=== PATIENT | male | born 1970 | race African-American/Black ===

== ENCOUNTER 2019-08-25 00:55 | Emergency (ER) | payer OTHER ==
[2019-08-25 03:42] LABS: ABS Eosinophils 0.3 10^3/ul (0-0.6); ABS Lymphocytes 1.4 10^3/ul (1.0-4.8); ABS Monocytes 0.3 10^3/ul (0-0.8); ABS Neutrophils 2.2 10^3/ul (1.5-7.7); Eosinophil % 7.2 %; Hematocrit 42 % (42-52); Hemoglobin 14.4 g/dL (14.0-18.0); Mean Corpuscular HGB Conc 34 g/dL (31-36); Mean Corpuscular Hemoglobin 30 pg (27-31); Mean Corpuscular Volume 88 fL (80-94); Mean Platelet Volume 10.8 fL (7.4-10.4); Nucleated Red Blood Cells % 0.1; Platelet Count 143 10^3/uL (150-450); Red Blood Count 4.82 10^6 /uL (4.18-5.48); Red Cell Distribution Width 15 % (10-15); White Blood Count 4.4 10^3/uL (3.5-10.8)
--- NOTE | 2019-08-25 03:52 | ED ---
Abdominal Pain/Male - HPI Summary HPI Summary: Pt is a 49 y/o M presenting to the ED with a chief complaint of abdominal pain initially onset this evening. He states he drifted off to sleep and woke up a couple hours later with a sharp abd pain in the middle of his stomach. He had a bowel movement, and when he stood up he felt pretty severe weakness. The sensation of pain in his stomach turned into a throbbing, and he began to experience some chest pressure, headache, and chills. He denies nausea, vomiting , fever, LE myalgia or LE edema. - History of Current Complaint Chief Complaint: EDAbdPain Stated Complaint: DONT FEEL RIGHT PER PT Time Seen by Provider: 08/25/19 03:01 Hx Obtained From: Patient Onset/Duration: Sudden Onset, Still Present Timing: Constant, Lasting Hours Severity Initially: Moderate Severity Currently: Moderate Pain Intensity: 6 Pain Scale Used: 0-10 Numeric Location: Umbilical Radiates: No Character: Sharp, Other: - throbbing Aggravating Factor(s): Nothing Alleviating Factor(s): Nothing Associated Signs And Symptoms: Negative: Fever, Nausea, Vomiting - Allergies/Home Medications Allergies/Adverse Reactions: Allergies Allergy/AdvReac Type Severity Reaction Status Date / Time No Known Allergies Allergy Verified 08/25/19 01:03 Home Medications: Home Medications NK [No Home Medications Reported] 08/25/19 [History Confirmed 08/25/19] PMH/Surg Hx/FS Hx/Imm Hx Previously Healthy: Yes Endocrine/Hematology History: Denies: Hx Diabetes Cardiovascular History: Denies: Hx Hypertension Infectious Disease History: No Infectious Disease History: Denies: Traveled Outside the [place] in Last 30 Days - Family History Known Family History: Negative: Diabetes - Social History Alcohol Use: None Hx Substance Use: No Substance Use Type: Reports: None Hx Tobacco Use: No Smoking Status (MU): Never Smoked Tobacco Review of Systems Positive: Chills. Negative: Fever Positive: Chest Pain - chest pressure Positive: Abdominal Pain. Negative: Vomiting, Nausea Negative: Myalgia, Edema Positive: Headache, Weakness All Other Systems Reviewed And Are Negative: Yes Physical Exam - Summary Physical Exam Summary: Constitutional: Well-developed, Well-nourished, Alert. (-) Distressed Skin: Warm, Dry HENT: Normocephalic; Atraumatic Eyes: Conjunctiva normal Neck: Musculoskeletal ROM normal neck. (-) JVD, (-) Stridor, (-) Tracheal deviation Cardio: Rhythm regular, rate normal, Heart sounds normal; Intact distal pulses; Radial pulses are 2+ and symmetric. (-) Murmur Pulmonary/Chest wall: Effort normal. (-) Respiratory distress, (-) Wheezes, (-) Rales Abd: Soft, (-) tenderness, (-) Distension, (-) Guarding, (-) Rebound Musculoskeletal: (-) Edema Lymph: (-) Cervical adenopathy Neuro: Alert, Oriented x3 Psych: Mood and affect Normal Triage Information Reviewed: Yes Vital Signs On Initial Exam: Initial Vitals Temp Pulse Resp BP Pulse Ox 98.4 F 85 16 133/87 96 08/25/19 00:55 08/25/19 00:55 08/25/19 00:55 08/25/19 00:55 08/25/19 00:55 Vital Signs Reviewed: Yes Procedures - Sedation Patient Received Moderate/Deep Sedation with Procedure: No Diagnostics - Vital Signs Vital Signs Temp Pulse Resp BP Pulse Ox 08/25/19 00:55 98.4 F 85 16 133/87 96 - Laboratory Lab Results: Lab Results 08/25/19 Range/Units 03:34 WBC 4.4 (3.5-10.8) 10^3/uL RBC 4.82 (4.18-5.48) 10^6 /uL Hgb 14.4 (14.0-18.0) g/dL Hct 42 (42-52) % MCV 88 (80-94) fL MCH 30 (27-31) pg MCHC 34 (31-36) g/dL RDW 15 (10-15) % Plt Count 143 L (150-450) 10^3/uL MPV 10.8 H (7.4-10.4) fL Neut % (Auto) 50.7 % Lymph % (Auto) 33.0 % Morgan % (Auto) 8.0 % Eos % (Auto) 7.2 % Baso % (Auto) 1.1 % Absolute Neuts (auto) 2.2 (1.5-7.7) 10^3/ul Absolute Lymphs (auto) 1.4 (1.0-4.8) 10^3/ul Absolute Monos (auto) 0.3 (0-0.8) 10^3/ul Absolute Eos (auto) 0.3 (0-0.6) 10^3/ul Absolute Basos (auto) 0.0 (0-0.2) 10^3/ul Absolute Nucleated RBC 0.0 10^3/ul Nucleated RBC % 0.1 Result Diagrams: 08/25/19 03:34 08/25/19 03:34 Lab Statement: Any lab studies that have been ordered have been reviewed, and results considered in the medical decision making process. - Radiology CXR Radiology Interpretation Completed By: ED Physician Summary of Radiographic Findings: No acute process. Pending official radiology report. - EKG 0104 Cardiac Rate: NL - 68bpm EKG Rhythm: Sinus Rhythm ST Segment: Normal Ectopy: None Summary of EKG Findings: EKG at 0104 shows NSR at 64bpm with Q-waves in lead III and aVF. No STEMI. Abdominal Pain Male Course/Dx - Course Course Of Treatment: Patient is here with midepigastric pain that radiates into his chest. Patient's overall well appearing with a benign exam. Patient had an EKG which showed no abnormalities except possible Q waves in the inferior leads. Patient had a CBC, CPK, lipase, troponin performed which were all grossly unremarkable. Patient was given lidocaine and Maalox. Patient talking about how his ainvega injection 3 years ago caused all of his symptoms. Patient was encouraged helped his primary care doctor for further management. - Diagnoses Provider Diagnoses: Epigastric abdominal pain Discharge ED - Sign-Out/Discharge Documenting (check all that apply): Patient Departure - Discharge Plan Condition: Stable Disposition: HOME Patient Education Materials: Epigastric Pain (ED) Referrals: Marito Decker MD [Primary Care Provider] - Additional Instructions: Please follow up with Dr. Decker in 1-3 days. Come back to the emergency department with worsening symptoms. - Billing Disposition and Condition Condition: STABLE Disposition: Home - Attestation Statements Document Initiated by Scribe: Yes Documenting Scribe: Suri Omer Provider For Whom Scribe is Documenting (Include Credential): Noah Lowery MD. Scribe Attestation: Suri Espino, scribed for Noah Lowery MD. on 08/25/19 at 0654. Scribe Documentation Reviewed: Yes Provider Attestation: The documentation as recorded by the scribe, Suri Omer accurately reflects the service I personally performed and the decisions made by me, Noah Lowery MD. Status of Scribe Document: Viewed
[2019-08-25 03:57] LABS: Albumin 4.2 g/dL (3.2-5.2); Albumin/Globulin Ratio 1.5 (1-3); BUN/Creatinine Ratio 9.8 (8-20); Calcium 9.3 mg/dL (8.6-10.3); EGFR African American 106.7 (>60); EGFR Non-African American 88.2 (>60); Globulin 2.8 g/dL (2-4); Total Bilirubin 0.8 mg/dL (0.2-1.0)
[2019-08-25 04:46] LABS: Potassium 4.1 mmol/L (3.5-5.0)
[2019-08-25] MEDS ORDERED: Lidocaine 2% VISCOUS* 15 ML UDC PO ONE (04:47)
[2019-08-25] MEDS ORDERED: Al Hydrox/Mg Hydrox/Simet LIQ* 30 ML UDC PO ONE (04:47)
[2019-08-25 06:44] VITALS: BP 119/74
== END 2019-08-25 06:41 | disposition home or self-care (01) ==
LOC: ED 00:55
DX: R10.13 Epigastric pain (principal)
CPT/HCPCS: 36415; 71045; 80053; 84484; 85025; 93005; 99282; A9270-GY

== ENCOUNTER 2019-09-22 02:44 | Observation (INO) | payer OTHER ==
--- NOTE | 2019-09-22 04:00 | ED ---
HPI Chest Pain - HPI Summary HPI Summary: Patient is a 49 y/o M presenting to [facility] with complaints of chest pressure/ heaviness and SOB. Patient states that these Sx onset suddenly and awoke him from sleep around 0300 09/22/19. Pressure is still present. He reports normal routine before going to bed last night. This is the second episode of such Sx. He reports that first episode occurred a few weeks ago. Patient states that during his previous visit, he was told that his EKG indicated that it was possible that the patient might have had an DC in the past. He subsequently went to PCP, who ordered a cardioechogram. Patient had echo this morning and was told that there was "nothing terrible". He denies any increased exercise intolerance, abdominal pain, N/V. Patient is not on any daily medications. FMHx of DC is denied. On triage, pain is rated 9/10. Home medications and allergies are reviewed. He describes himself as an active person. - History of Current Complaint Chief Complaint: EDChestWallPain Time Seen by Provider: 09/22/19 03:47 Hx Obtained From: Patient Onset/Duration: Started Hours Ago, Still Present Timing: Constant, Lasting Hours Current Severity: Severe Pain Intensity: 9 Pain Scale Used: 0-10 Numeric Character: Heaviness, Pressure/Squeezing Associated Signs and Symptoms: Positive: Chest Pain, Shortness of Breath, Other : - negative - increased exercise intolerance. Negative: Nausea, Abdominal Pain , Vomiting - Allergy/Home Medications Allergies/Adverse Reactions: Allergies Allergy/AdvReac Type Severity Reaction Status Date / Time No Known Allergies Allergy Verified 08/25/19 01:03 PMH/Surg Hx/FS Hx/Imm Hx Endocrine/Hematology History: Denies: Hx Diabetes Cardiovascular History: Denies: Hx Hypertension Infectious Disease History: No Infectious Disease History: Denies: Traveled Outside the [place] in Last 30 Days - Family History Known Family History: Negative: Cardiac Disease, Diabetes - Social History Alcohol Use: None Hx Substance Use: No Substance Use Type: Reports: None Hx Tobacco Use: No Smoking Status (MU): Never Smoked Tobacco Review of Systems Constitutional: Other - negative - increased exercise intolerance Positive: Chest Pain Positive: Shortness Of Breath Negative: Abdominal Pain, Vomiting, Nausea All Other Systems Reviewed And Are Negative: Yes Physical Exam - Summary Physical Exam Summary: Constitutional: Well-developed, Obese, Alert. (-) Distressed Skin: Warm, Dry HENT: Normocephalic; Atraumatic Eyes: Conjunctiva normal Neck: Musculoskeletal ROM normal neck. (-) JVD, (-) Stridor, (-) Tracheal deviation Cardio: Rhythm regular, rate normal, Heart sounds normal; Intact distal pulses; The pedal pulses are 2+ and symmetric. Radial pulses are 2+ and symmetric. Pulmonary/Chest wall: Effort normal. (-) Respiratory distress, (-) Wheezes, (-) Rales Abd: Soft, (-) tenderness, (-) Distension, (-) Guarding, (-) Rebound Musculoskeletal: (-) Edema (-) Calf tenderness Neuro: Alert, Oriented x3 Psych: Mood and affect Normal Triage Information Reviewed: Yes Vital Signs On Initial Exam: Initial Vitals Temp Pulse Resp BP Pulse Ox 0 F 92 16 141/85 98 09/22/19 02:50 09/22/19 02:50 09/22/19 02:50 09/22/19 02:50 09/22/19 02:50 Vital Signs Reviewed: Yes Procedures - Sedation Patient Received Moderate/Deep Sedation with Procedure: No Diagnostics - Vital Signs Vital Signs Temp Pulse Resp BP Pulse Ox 09/22/19 03:30 81 18 134/91 98 09/22/19 03:00 87 20 141/85 98 09/22/19 02:59 87 16 99 09/22/19 02:50 0 F 92 16 141/85 98 - Laboratory Result Diagrams: 09/22/19 04:10 09/22/19 04:55 Lab Statement: Any lab studies that have been ordered have been reviewed, and results considered in the medical decision making process. - Radiology CXR Radiology Interpretation Completed By: ED Physician Summary of Radiographic Findings: No acute disease, pending official report. - EKG 0247 Cardiac Rate: NL - rate of 85 BPM EKG Rhythm: Sinus Rhythm EKG Comparison: No Significant Change - inferior Q waves that are old compared to EKG done 08/25/19 Summary of EKG Findings: EKG showed NSR with rate of 85 BPM, no STEMI, inferior Q waves that are old compared to EKG done 08/25/19. This EKG was reviewed and interpreted by Dr. Stewart. Chest Pain Course/Dx - Course Course Of Treatment: Patient is a 49 y/o M presenting to [facility] with complaints of chest pressure/heaviness and SOB. Patient states that these Sx onset suddenly and awoke him from sleep around 0300 09/22/19. Pressure is still present. He reports normal routine before going to bed last night. This is the second episode of such Sx. He reports that first episode occurred a few weeks ago. Patient states that during his previous visit, he was told that his EKG indicated that it was possible that the patient might have had an DC in the past. He subsequently went to PCP, who ordered a cardioechogram. Patient had echo this morning and was told that there was "nothing terrible". First trop was negative. EKG showed NSR with rate of 85 BPM, no STEMI, inferior Q waves that are old compared to EKG done 08/25/19. CXR showed no acute disease. Patient 's case was discussed with Dr. Guzman, Dr. Guzman accepts for admission. - Diagnoses Provider Diagnoses: Chest pain - Provider Notifications Discussed Care Of Patient With: Nina Guzman Time Discussed With Above Provider: 04:53 Instructed by Provider To: Other - Patient's case was discussed with Dr. Guzman , Dr. Guzman accepts for admission. Discharge ED - Sign-Out/Discharge Documenting (check all that apply): Patient Departure - admit - Discharge Plan Condition: Stable Disposition: ADMITTED TO [facility] Referrals: Marito Decker MD [Primary Care Provider] - - Billing Disposition and Condition Condition: STABLE Disposition: Admitted to [facility] - Attestation Statements Document Initiated by Maxine: Yes Documenting Jaronibe: ARSENIO MARTI Provider For Whom Maxine is Documenting (Include Credential): DUANE STEWART MD Scribe Attestation: IARSENIO, scribed for DUANE STEWART MD on 09/22/19 at 0730. Scribe Documentation Reviewed: Yes Provider Attestation: The documentation as recorded by the ARSENIO crawley accurately reflects the service I personally performed and the decisions made by me, DUANE STEWART MD Status of Scribe Document: Viewed
[2019-09-22 04:18] LABS: Hematocrit 44 % (42-52); Hemoglobin 14.8 g/dL (14.0-18.0); Mean Corpuscular HGB Conc 33 g/dL (31-36); Mean Corpuscular Hemoglobin 29 pg (27-31); Mean Corpuscular Volume 88 fL (80-94); Mean Platelet Volume 10.4 fL (7.4-10.4); Platelet Count 141 10^3/uL (150-450); Red Blood Count 5.02 10^6 /uL (4.18-5.48); Red Cell Distribution Width 15 % (10-15); White Blood Count 4.3 10^3/uL (3.5-10.8)
[2019-09-22 04:37] LABS: ALT 44 U/L (7-52); Albumin 4.1 g/dL (3.2-5.2); Albumin/Globulin Ratio 1.3 (1-3); Alkaline Phosphatase 78 U/L (34-104); BUN/Creatinine Ratio 13.4 (8-20); Blood Urea Nitrogen 13 mg/dL (6-24); CO2 Carbon Dioxide 24 mmol/L (22-32); Calcium 9.1 mg/dL (8.6-10.3); Chloride 106 mmol/L (101-111); EGFR African American 100.4 (>60); Globulin 3.1 g/dL (2-4); Glucose 105 mg/dL (70-100); Sodium 136 mmol/L (135-145); Total Protein 7.2 g/dL (6.4-8.9)
[2019-09-22 04:41] LABS: Anion Gap 6 mmol/L (2-11)
[2019-09-22] MEDS ORDERED: Aspirin 81 mg CHEW TAB* 81 MG TAB.CHEW PO ONE (05:04)
[2019-09-22 05:24] LABS: Magnesium 1.9 mg/dL (1.9-2.7); Total Bilirubin 0.6 mg/dL (0.2-1.0)
[2019-09-22 05:27] LABS: ABS Eosinophils 0.3 10^3/ul (0-0.6); ABS Lymphocytes 1.3 10^3/ul (1.0-4.8); ABS Monocytes 0.4 10^3/ul (0-0.8); ABS Neutrophils 2.3 10^3/ul (1.5-7.7); Eosinophil % 6.8 %; Lymphocyte % 30.2 %; Nucleated Red Blood Cells % 0.3
[2019-09-22 05:38] LABS: Potassium Redraw 3.8 mmol/L (3.5-5.0)
[2019-09-22] MEDS ORDERED: Acetaminophen TAB* 325 MG PO PRN (08:20)
[2019-09-22] MEDS ORDERED: Iohexol 350* (CONTRAST) 500 ML MDV IV ONE (08:29)
[2019-09-22] MEDS: Aspirin EC TAB* 81 MG TAB.EC PO SCH (10:06)
[2019-09-22] MEDS ORDERED: Perflutren Lipid Microsphere* 3 ML VIAL ONE (10:41)
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
--- NOTE | 2019-09-22 14:21 | ECHO ---
*[facility]* [place] [address] Fax #: [phone] Transthoracic Echocardiogram Patient: Omari Kern : 1970 Study Date: 09/22/2019 Age: 49 Gender: M HR: 74 bpm Height: 75 in /190.5 cm BSA: 2.41 m^2 Weight: 249.5 lb /113.4 kg BMI: 31.2 kg/m^2 *Director Federal: Jeaneth Walsh RD *Referring Physician: * Maryanne PangReading Physician: * Yann Cowan MD Indications: Chest Pain, unspecified. SOB. Conclusions Summary: - Left ventricle: The cavity size is normal. Wall thickness is normal. Systolic function is normal. The estimated ejection fraction is 55-60%. Wall motion is normal; there are no regional wall motion abnormalities. - Right ventricle: The cavity size is normal. Systolic function is normal. - Left atrium: The atrium is normal in size. - Pulmonary arteries: Systolic pressure is within the normal range. - No significant valvular abnormalities noted. Recommendations: None prior for comparison at time of interpretation. Study data: Transthoracic echocardiogram. Procedure: Transthoracic echocardiography was performed. Image quality was adequate. The study was technically limited due to body habitus. Intravenous Definity , 3 mlswas administered. Image enhancement administered by Complete 2D, spectral Doppler, and color flow Doppler. Patient status: Observation. Patient room number: 443-1. Rhythm: Normal sinus rhythm. Findings Left ventricle: The cavity size is normal. Wall thickness is normal. Systolic function is normal. The estimated ejection fraction is 55-60%. Wall motion is normal; there are no regional wall motion abnormalities. Doppler parameters are consistent with abnormal left ventricular relaxation (grade 1 diastolic dysfunction). Right ventricle: Not well visualized. The cavity size is normal. Systolic function is normal. Ventricular septum: Well visualized. The ventricular septum is normal. Left atrium: Well visualized. The atrium is normal in size. Right atrium: Not well visualized. The atrium is normal in size. Atrial septum: Well visualized. Mitral valve: Well visualized. The valve is structurally normal. No echocardiographic evidence for prolapse. There is trace regurgitation. Aortic valve: Well visualized. The valve is structurally normal. Cusp separation is normal. Transvalvular velocity is within the normal range. Tricuspid valve: Well visualized. The leaflets are normal thickness. There is no evidence of stenosis. There is trace regurgitation. Pulmonic valve: Well visualized. There is no evidence of stenosis. There is no significant regurgitation. Aorta: The aorta is well visualized and normal size. The aortic root appears normal. The aortic arch appears normal. Pericardium: There is no pericardial effusion. Pulmonary arteries: Well visualized. Systolic pressure is within the normal range. Systemic veins: Not well visualized. Pulmonary veins: Visualization of the pulmonary venous anatomy is incomplete, but a significant abnormality is unlikely. Measurements Left ventricle Value Ref Right atrium continued Value Ref WILLIE, LAX 4.2 cm 4.2 - ML dim, ES, A4C 3.3 cm 2.6 - 5.8 4.4 ESD, LAX 2.9 cm 2.5 - SI dim, ES, A4C 4.5 cm 3.4 - 4.0 5.3 FS, LAX 31 % 25 - 43 PW, ED, LAX (H) 1.1 cm 0.6 - Aortic valve Value Ref 1.0 Tricia diam, ED 2.1 cm ------- FS 31 % 25 - 43 Peak v, S 1.12 m/sec ------- PW, ED (H) 1.1 cm 0.6 - VTI, S 24.4 cm ------- 1.0 Mean grad, S 3.0 mm Hg ------- PW/ID, ED 0.25 -------- Peak grad, S 5.0 mm Hg ------- E', lat tricia, TDI 10.3 cm/sec >=10.0 LVOT/AV, VTI ratio 1.01 ------- E/e', lat tricia, TDI 7 -------- E', med tricia, TDI 8.6 cm/sec >=7.0 Mitral valve Value Ref E/e', med tricia, TDI 8 -------- Peak E 0.7 m/sec -- ----- E', avg, TDI 9.5 cm/sec -------- Peak A 0.72 m/sec -- ----- E/e', avg, TDI 7 <=14 Decel time 148 ms ------- Peak E/A ratio 1 ------- LVOT Value Ref Peak vidal, S 1.23 m/sec -------- Pulmonic valve Value Ref VTI, S 24.7 cm -------- Peak v, S 0.78 m/sec ------- Peak grad, S 6 mm Hg -------- Peak grad, S 2.0 mm Hg ------- Mean grad, S 2 mm Hg -------- Aortic root Value Ref Ventricular septum Value Ref Root diam 3.3 cm <4.4 IVS, ED 0.9 cm 0.6 - Root max diam, ED 1.9 cm <4.4 1.0 Ascending aorta Value Ref Right ventricle Value Ref AAo AP diam, S 3.2 cm ------- WILLIE, LAX 3.2 cm -------- AAo AP diam/bsa, S 1.3 cm/m^2 ------- WILLIE minor ax, A4C 3.1 cm 1.9 - mid 3.5 Aortic arch Value Ref Arch diam 2.8 cm ------- Left atrium Value Ref ML dim, A4C 4.0 cm -------- Decending aorta Value Ref SI dim, A4C 4.8 cm -------- Singh peak vidal 0.7 m/sec ------- Vol/bsa, ES, A/L 16 ml/m^2 16 - 34 Right atrium Value Ref SI dim, ES 4.5 cm 3.4 - 5.3 Legend: (L) and (H) cher values outside specified reference range. Prepared and electronically signed by Yann Cowan MD 09/22/2019 14:21
[2019-09-23] MEDS: Aspirin EC TAB* 81 MG TAB.EC PO SCH (08:32)
[2019-09-23 10:03] LABS: HDL Cholesterol 43.2 mg/dL
[2019-09-23] MEDS ORDERED: Perflutren Lipid Microsphere* 3 ML VIAL ONE (14:50)
--- NOTE | 2019-09-23 18:25 | PN ---
Subjective Date of Service: 09/23/19 Interval History: At time of evaluation, patient tells me he still has chest pressure which has been mostly persistent throughout the day today. He states it is improved from yesterday. He states it is not a pain but rather a pressure only. Denies fever/ chills, difficulty breathing, abd pain. He is evidently unsatisfied with the information I explain to him regarding his stress test and tells me, "You are only here because they don't want to talk to me." When asked to explain further he states, "my doctor." When attempting to explain the function of a physician butcher assistant patient interrupts and does not want more information. Objective Active Medications: Acetaminophen (Tylenol Tab*) 650 mg PO Q6H PRN PRN Reason: MILD PAIN or TEMP > 100.4 Aspirin (Aspirin Ec Tab*) 81 mg PO DAILY SHAY Last Admin: 09/23/19 08:32 Dose: Not Given Vital Signs - 8 hr 09/23/19 12:04 Temperature 97.8 F Pulse Rate 74 Respiratory 16 Rate Blood Pressure 126/85 (mmHg) O2 Sat by Pulse 100 Oximetry Oxygen Devices in Use Now: None Appearance: Black male who appears younger than stated age, laying upright in bed, in NAD Eyes: No Scleral Icterus Ears/Nose/Mouth/Throat: Mucous Membranes Moist Neck: - - neck is supple Respiratory: Symmetrical Chest Expansion and Respiratory Effort, - - declines exam Cardiovascular: - - declines exam Abdominal: - - declines exam Extremities: - - declines exam, legs are under blankets Skin: - - areas of hypopigmented skin consistent with vitiligo Neurological: Alert and Oriented x 3 Result Diagrams: 09/22/19 04:10 09/22/19 04:55 Assess/Plan/Problems-Billing Assessment: 49 yo black male with PMHx prior episodes of psychosis and vitiligo presents with chest pressure. - Patient Problems (1) Chest pressure Current Visit: Yes Status: Acute Code(s): R07.89 - OTHER CHEST PAIN SNOMED Code(s): 477243953 Comment: -presents with chest pressure, which is improved today though still present -CTA negative for PE -troponins negative x3 -exercise stress test today determined to be low risk -patient declines physical exam and I am unable to determine if this is reproducible or not though there is nursing documentation stating that the chest pressure is not reproducible on exam -I will discontinue aspirin as the cause is not cardiac -his LDL is elevated and perhaps would benefit from a statin which would warrant discussion with his PCP (2) Delusion Current Visit: Yes Status: Acute Code(s): F22 - DELUSIONAL DISORDERS SNOMED Code(s): 2971266 Comment: -patient has a persistent delusion about being poisoned in 2013 and believes this is still impacting his health -some documentation from previous psychiatric hospitalizations in [place] obtained from Dr. Decker's office and are in chart -patient previously prescribed antipsychotics and currently is not taking any medications -patient reportedly has a guardian but the situation is not clear. This may be indicative that patient lacks capacity to make decisions regarding his medication, though requires further investigation. Social work involved -psychiatry consulted, greatly appreciate input (3) DVT prophylaxis Current Visit: Yes Status: Acute Code(s): Z29.9 - ENCOUNTER FOR PROPHYLACTIC MEASURES, UNSPECIFIED SNOMED Code(s): 307377847 Comment: -SCDs (4) Full code status Current Visit: Yes Status: Acute Code(s): Z78.9 - OTHER SPECIFIED HEALTH STATUS SNOMED Code(s): 934408620 Status and Disposition: At this time, there are concerns for homelessness and thus there is no safe plan for discharge. SW discussed emergency housing with DSS. Also pending psychiatry evaluation
[2019-09-23] MEDS ORDERED: Famotidine TAB* 20 MG PO PRN (18:31)
--- NOTE | 2019-09-23 20:15 | CONS ---
CONSULTATION REPORT: DATE OF CONSULT: 09/23/19 REFERRING CLINICIAN: ALESSANDRA Guzman. CONSULTING PHYSICIAN: Dr. Karl Bhatt. REASON FOR CONSULT: Paranoid behavior. SUBJECTIVE HISTORY: The patient is a 49-year-old, single [place] Islander immigrant with a history of psychosis who self-referred to the emergency room 1 day ago complaining of chest pain and is currently admitted to the telemetry service here on the fourth floor. While receiving diagnostic services and care , the patient has appeared to be quite paranoid making statements to the effect that he believes he is being poisoned and persecuted. The primary team was concerned enough about these tendencies to request consultation. When I meet with the patient, he openly tells me about a prolonged state psychiatric hospitalization that occurred in [place] from October 2014 until roughly August 2015. His account is that he was merely minding his own business at a local [employer] where he was eating and he walked downstairs to use the bathroom and was apprehended by law enforcement and accused of trespassing. He was in snf for 2 to 3 months and then transferred to the [facility] where they tried to medicate him. Because he refused antipsychotics, he was taken to court and then put on long-acting injectable Invega Sustenna. He claims that this medication caused a skin condition called vitiligo as well as muscle aches , shuffling gait, and chronic constipation. He was discharged to a local social services coordinator for case management, but briefly moved to [place], [place], where he tried to get a job and then moved to the [facility] where his foster brother, Guille Salgado resides. He is currently living with Mr. Salgado in [place] and without permission apparently took a family car in order to drive himself to the hospital. He is very much paranoid towards Mr. Salgado and did not want this person notified of his admission. Currently, he is denying auditory or visual hallucinations. He denies thought broadcasting, thought insertion, or ideas of reference. He denies any depressed mood or anxiety, although I do notice that he gets tearful when he is accusing his foster family of being against him. 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 For collateral information, I did speak with his foster brother who at one point had legal guardianship over him. This person's name is Guille Salgado. His phone number is [phone]. Mr. Salgado indicates that when the patient is psychotic, he can become agitated and this was the reason for his hospitalization in [place]. Since getting out of the hospital, his paranoia was largely under control, but the longer he has been off of Invega, the more symptomatic he has become. Mr. Salgado does confirm that the patient did quite poorly on Invega, saying that the medicine "nearly killed him." He is aware that Omari has paranoid ideas towards him, but he denies that Omari has been violent towards himself or others. The patient in fact does steadfastly deny suicidal or homicidal ideations. PAST PSYCHIATRIC HISTORY: The patient was hospitalized at the [facility] in [place], [place], in October 2014 until his release in August 2015. There, he was treated with Invega Sustenna 234 mg monthly. His last injection was in August 2015 just before his release. He was briefly referred to the [facility], but never made it there for any appointments having moved out of that area. Since living in [place], he has seen a psychologist named Steve Ybarra LCSW. I spoke with Mr. Ybarra on the phone who was not comfortable giving the collateral history without a signed release. The patient has never been on other psychiatric treatment. He has no formal history of violence towards others and he denies suicidal or homicidal ideations currently. SUBSTANCE ABUSE HISTORY: Negative for alcohol, illicit drug abuse, or tobacco usage. PAST MEDICAL HISTORY: Significant for vitiligo and acute chest pain. FAMILY HISTORY: Noncontributory. SOCIAL HISTORY: The patient was born in [place] where his family were refugees, forced to [place] the border [place] [facility]. He was able to emigrate to the [place] at the age of 18 and he was adopted by a woman named Kristine Damian in [place], [place]. Thereafter, he went to undergraduate college at [employer] in [place]. He has a bachelor's degree in chemistry and economics. Thereafter, he went to graduate school in epidemiology at [employer] and thereafter got a master's in public health at [employer]. 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 He last worked at the [employer] for a joint project between the [employer] and the [employer]. Since his health issues, he has been chronically unemployed and is frustrated at his inability find work at this point questioning whether he is a victim of a conspiracy. The patient is single , never . He has no children. He was raised Episcopal. He does have 1 arrest in July 2014 with 3 months confinement in the [facility] in [place], where his official charge was trespassing. MENTAL STATUS EXAMINATION: The patient is a middle-aged East male with dark skin with the exception of some blotchy white patches on his face, scalp, and arms. He is clean, well groomed, dressed in a patient gown. He is calm, cooperative, conversational. Mood appears to be euthymic with a full affect. Thought process is linear and goal directed. Thought content is highly persecutorial, delusional. He denies suicidal or homicidal ideations. He denies auditory or visual hallucinations. Insight and judgment are limited given his refusal to take further antipsychotic medications. Cognitively, he is awake and alert with what would appear to be high average intellect by virtue of his extensive academic history of achievement. DIAGNOSES: [place] I: Delusional disorder. [place] II: Deferred. IMPRESSION: The patient is a 49-year-old [place]inese [place] Islander immigrant with a history of prolonged state psychiatric hospitalization for treatment of delusions, who arrives voluntarily seeking treatment for chest pain. Since admission to the fourth floor, the staff has noted that he is paranoid and voicing persecutory ideas of people poisoning him and trying to conspire against him. This is corroborated by his foster brother, Guille Salgado, who at point had legal guardianship and with whom the patient has been living in [place], [place]. RECOMMENDATIONS TO PRIMARY TEAM: Psychiatry would like to see the patient again tomorrow to revisit the issue of possible antipsychotic therapy. If he was not tolerant of Invega, there is a chance that Abilify could be far better tolerated. It would be good if he could be hooked up with outpatient services locally. I do not see the patient as a risk to himself or others and he certainly does not meet criteria for involuntary psychiatric treatment. He is psychiatrically cleared for discharge at such time as the medical team feels that this is warranted. Psychiatry will see him again on 09/24/19 and make any further recommendations at that time. Thank you for the consult request. [id number]/CPS #: [id number] TONY
--- NOTE | 2019-09-24 12:04 | CONSULT ---
Identification - Patient Identification Reason for Psychiatric Consultation: Incapacitating Symptoms -: Patient is a 49 year old, M admitted on 09/22/19. - MHU Identification Employment Status: Unemployed Hx Psychiatric Hospitalization: Yes History - Objective HPI: Omari is seen for psychiatric follow up on the 4th floor. He remains cooperative and articulate, inviting me to sit down and talk. He has a laptop which he uses to pull up a copy of the legal guardianship court paperwork from [place] in 2015. "I am not upset and I have no malice towards anyone. I just want to have the right to pursue my own career and life plan from this point forward." He notes that he spoke with Lupe Salgado, the of his foster brother Guille, and indicates that she has come to the hospital to retrieve the family car he drove here, without their knowledge or consent, on the date of admission. He is now asking for assistance with housing, given the fact that he has lost trust for his foster family. He denies chest pain at this time and admits to no thoughts of harming himself or others. I did reveal my diagnosis of Delusional Disorder and gave him my rationale for coming to this conclusion. I advised him to start a trial of low dose aripiprazole and to follow up with MH treatment at [facility] clinic. He is polite but does not concur with my recommendations, although he agrees to see me for follow up if still here tomorrow. Exam Appearance: Well Developed/Nourished Hygiene: Normal Grooming: Well Kept Psychomotor Activities: Normal Exhibits Abnormal Movement: No Attitude and Relatedness: Cooperative Eye Contact: Good - Speech Quality: Unpressured Latencies: Normal Quantity: Appropriate Patient's Decription of Mood: "Fine" Observed Affect: Fair Affect Consistent with: Euthymia Patient's Thought Process: Coherent Thought Content: Yes Paranoid Ideation, No Passive Wish, No Suicidal Planning, No Homicidal Ideation Experiencing Hallucinations: No, Sensorium is Clear Type of Hallucinations: Visual: No, Auditory: No, Command: No Level of Consciousness: Alert Orientation: Yes Intact, Yes Orientated to Time, Yes Orientated to Place, Yes Orientated to Person Impulse Control: Intact Insight and Judgement: Poor Impression - Impression Clinical Impression: 49 y.o. Polish-Thai immigrant male with a history of psychotic disorder and long-term State psychiatric hospitalization in [place], currently admitted to the Hospitalist service due to chest pain, who presents with paranoid delusions. Inpatient DSM-V Dx: F22 Merits Inpatient Hospitalization: No BSU: Problem List - Patient Problems (1) Delusional disorder Current Visit: Yes Status: Acute Priority: Medium Code(s): F22 - DELUSIONAL DISORDERS SNOMED Code(s): 30980075 Plan - Treatment Plan Treatment Plan: Psychiatry recommends the initiation of aripiprazole 2.5mg PO qday, which the patient has the right to refuse. He has capacity to make informed decisions and is not currently a danger to himself nor others. He is psychiatrically cleared for discharge and would benefit from f/u at [facility]. Psychiatry will see him again tomorrow if still hospitalized. Continued Medication Management: Start Medication Medications: Current Medications Acetaminophen (Tylenol Tab*) 650 mg PO Q6H PRN PRN Reason: MILD PAIN or TEMP > 100.4 Famotidine (Pepcid Tab*) 20 mg PO BID PRN PRN Reason: HEARTBURN - Discharge Plan Discharge Plan: Outpatient Follow Up Outpatient Program: [facility]
[2019-09-24] MEDS: ARIPiprazole TAB* 5 MG PO SCH (14:25)
--- NOTE | 2019-09-24 15:32 | PN ---
Subjective Date of Service: 09/24/19 Interval History: Patient expresses he would not want to be discharged because he spoke with the vp digital marketing social media and crm yesterday who "promised she would bring me information regarding housing." He does not want to go back to his current living situation. He denies abd pain, chest pain, difficulty breathing. He tells me he has not heard back about "all the blood tests that were done" and this editorial writer mentioned that we discussed the negative troponins yesterday. He tells me, "that is your perception." Objective Active Medications: Acetaminophen (Tylenol Tab*) 650 mg PO Q6H PRN PRN Reason: MILD PAIN or TEMP > 100.4 Aripiprazole (Abilify Tab*) 2.5 mg PO DAILY SHAY Last Admin: 09/24/19 14:25 Dose: Not Given Famotidine (Pepcid Tab*) 20 mg PO BID PRN PRN Reason: HEARTBURN Vital Signs - 8 hr 09/24/19 09/24/19 09:54 11:15 Temperature 98 F 98.2 F Pulse Rate 88 85 Respiratory 18 20 Rate Blood Pressure 118/70 111/72 (mmHg) O2 Sat by Pulse 99 98 Oximetry Oxygen Devices in Use Now: None Appearance: Black male who appears younger than stated age, laying upright in bed, in NAD Eyes: No Scleral Icterus, - - PERRL Ears/Nose/Mouth/Throat: Mucous Membranes Moist Respiratory: Symmetrical Chest Expansion and Respiratory Effort, Clear to Auscultation Cardiovascular: NL Sounds; No Murmurs; No JVD, RRR Abdominal: - - abd soft, nontender, nondistended Extremities: No Edema, No Clubbing, Cyanosis, - - no calf tenderness Skin: - - patches of hypopigmented skin consistent with vitiligo Neurological: Alert and Oriented x 3, NL Muscle Strength and Tone Result Diagrams: 09/22/19 04:10 09/22/19 04:55 Assess/Plan/Problems-Billing Assessment: 49 yo black male with PMHx prior episodes of psychosis and vitiligo presents with chest pressure. - Patient Problems (1) Chest pressure Current Visit: Yes Status: Acute Code(s): R07.89 - OTHER CHEST PAIN SNOMED Code(s): 493525652 Comment: -presents with chest pressure, which is improved today though still present -CTA negative for PE -troponins negative x3 -exercise stress test determined to be low risk -aspirin discontinued as the cause is not cardiac -his LDL is elevated and perhaps would benefit from a statin which would warrant discussion with his PCP -ordered prn famotidine as GERD is on differential (2) Delusion Current Visit: Yes Status: Acute Code(s): F22 - DELUSIONAL DISORDERS SNOMED Code(s): 0197861 Comment: -patient has a persistent delusion about being poisoned in 2013 and believes this is still impacting his health -some documentation from previous psychiatric hospitalizations in [place] obtained from Dr. Decker's office and are in chart -patient previously prescribed antipsychotics and currently is not taking any medications -appreciate psychiatry consult. Dr. Bhatt recommended the patient try abilify and he declines at this time -f/u [facility] at discharge (3) DVT prophylaxis Current Visit: Yes Status: Acute Code(s): Z29.9 - ENCOUNTER FOR PROPHYLACTIC MEASURES, UNSPECIFIED SNOMED Code(s): 306189897 Comment: -SCDs (4) Full code status Current Visit: Yes Status: Acute Code(s): Z78.9 - OTHER SPECIFIED HEALTH STATUS SNOMED Code(s): 267942483 Status and Disposition: SW discussed emergency housing from [facility] with the patient and this is unable to occur over the weekend
[2019-09-25] MEDS: ARIPiprazole TAB* 5 MG PO SCH (08:50)
--- NOTE | 2019-09-25 16:41 | PN ---
Subjective Date of Service: 09/25/19 Interval History: Mr. Kern states that he continues to have mid-sternal chest pressure that he rates at 2-4/10. He denies chest pain. He notes that this has intermittently been present for approximately 3 months. He denies palpitation, pain with deep inhalation, tenderness to palpation. He states that he is cold today and has had a dry cough x2 days. He has no other complaints today. Objective Active Medications: Acetaminophen (Tylenol Tab*) 650 mg PO Q6H PRN PRN Reason: MILD PAIN or TEMP > 100.4 Aripiprazole (Abilify Tab*) 2.5 mg PO DAILY SHAY Last Admin: 09/25/19 08:50 Dose: Not Given Famotidine (Pepcid Tab*) 20 mg PO BID PRN PRN Reason: HEARTBURN Vital Signs: Temp Pulse Resp BP Pulse Ox 97.2 F 78 18 125/73 98 09/25/19 15:38 09/25/19 15:38 09/25/19 15:38 09/25/19 15:38 09/25/19 15:38 Oxygen Devices in Use Now: None Appearance: Mr. Kern is a middle-aged black male who is sitting up in bed. He appears well, in no acute distress. Eyes: No Scleral Icterus, PERRLA Ears/Nose/Mouth/Throat: NL Teeth, Lips, Gums, Clear Oropharnyx, Mucous Membranes Moist Neck: NL Appearance and Movements; NL JVP, Trachea Midline Respiratory: Symmetrical Chest Expansion and Respiratory Effort, Clear to Auscultation Cardiovascular: NL Sounds; No Murmurs; No JVD, RRR, No Edema, - - Anterior chest wall nontender to palpation. Abdominal: NL Sounds; No Tenderness; No Distention, No Hepatosplenomegaly Extremities: No Edema, No Clubbing, Cyanosis Neurological: Alert and Oriented x 3 Result Diagrams: 09/22/19 04:10 09/22/19 04:55 Assess/Plan/Problems-Billing Assessment: 49 yo black male with PMHx prior episodes of psychosis and vitiligo presents with chest pressure. - Patient Problems (1) Chest pressure Comment: -presents with chest pressure, which is improved today though still present -CTA negative for PE -troponins negative x3 -exercise stress test determined to be low risk -aspirin discontinued as the cause is not cardiac -elevated LDL discussed with patient, and he would prefer diet, exercise and declines statins at this time; recommend further discussion with PCP -ordered prn famotidine as GERD is on differential (2) Delusion Comment: -patient has a persistent delusion about being poisoned in 2013 and believes this is still impacting his health -some documentation from previous psychiatric hospitalizations in [place] obtained from Dr. Decker's office and are in chart -patient previously prescribed antipsychotics and currently is not taking any medications -appreciate psychiatry consult. Dr. hBatt recommended the patient try abilify and he declines at this time -f/u [facility] at discharge (3) DVT prophylaxis Comment: -SCDs (4) Full code status Status and Disposition: SW discussed emergency housing from [facility] with the patient and this is unable to occur over the weekend. Plan for d/c to DSS tomorrow discussed with patient, and he is agreeable.
[2019-09-26] MEDS: ARIPiprazole TAB* 5 MG PO SCH (08:59)
[2019-09-26 11:55] VITALS: BP 137/82
--- NOTE | 2019-09-27 02:34 | DS ---
DISCHARGE SUMMARY: DATE OF ADMISSION: 09/22/19 DATE OF DISCHARGE: 09/26/19 PRIMARY CARE PROVIDER: Dr. Marito Decker. ATTENDING PHYSICIAN: Dr. Purnima Ribeiro * (dictated by ALESSANDRA Conway). PRIMARY DIAGNOSIS: Chest pressure, acute coronary syndrome ruled out. SECONDARY DIAGNOSES: 1. Vitiligo. 2. History of psychotic break. STUDIES WHILE IN THE HOSPITAL: 1. Chest x-ray. Impression: No evidence for active cardiopulmonary disease. 2. TTE. Summary: LV cavity size normal, wall thickness normal, systolic function normal. Estimated EF 55% to 60%. Wall motion normal without regional wall motion abnormalities. RV cavity size normal. Systolic function normal. LA normal in size. Pulmonary artery systolic pressure within the range. No significant valvular abnormalities noted. 3. CTA of the chest. Impression: No pulmonary embolism, predominantly clear lungs with subsegmental atelectasis. 4. Low-risk stress test. CONSULTATIONS WHILE IN THE HOSPITAL: Psychiatry. Psychiatry would like to see the patient again tomorrow to revisit the issue of possible antipsychotic therapy. If he was not tolerant to Invega, there is a chance that Ability could be far better tolerated. It would be good if he could be hooked up with outpatient services locally. I do not see the patient as a risk to himself or others and he certainly does not meet criteria for involuntary psychiatric treatment. He is psychiatrically cleared for discharge at such time as the medical team feels that this is warranted. Psych will see him again on Thursday and make further recommendations at that time. DISCHARGE MEDICATIONS: Home Medications: None. Discharge Medications: 1. Acetaminophen 650 mg p.o. q.6 hours p.r.n. for pain. 2. Aripiprazole 2.5 mg p.o. daily. 3. Famotidine 20 mg p.o. b.i.d. p.r.n. for reflux. HISTORY OF PRESENT ILLNESS/HOSPITAL COURSE: Mr. Kern is a middle-aged black male with a past medical history of psychiatric break who presented to the emergency room on 09/22/19 with complaints of sudden-onset chest pressure and shortness of breath. For full and complete details, please see the history and physical dictated by Maryanne Coleman MD, but in short, the patient presents with these symptoms. He states he awoke at 1:00 in the morning with shortness of breath and chest pressure. He was admitted to the hospital. EKG was obtained and showed no ST changes, although there were Q waves noted. Troponins were ordered and were negative x3. An echocardiogram was ordered and was within normal limits without wall motion abnormalities. Exercise stress test was performed and the patient was determined to be low risk. The patient reports that he is homeless and therefore remained in the hospital through the weekend until he could be safely discharged to [facility] for emergency housing. Psychiatry was consulted due to the patient expressing paranoid behaviors. Psychiatry recommended Abilify, although the patient refused to take this medication. It was recommended that he follow up outpatient with [facility]. At the time of discharge, the patient is medically stable for discharge. He initially does not feel comfortable with plans to discharge to [facility] for emergency housing, although he is eventually agreeable. He continues to have chest pressure that he rates between 2 and 3. REVIEW OF SYSTEMS: A 14-point review of systems has been performed and all the pertinent positives and negatives are in the HPI. All other systems are negative. PHYSICAL EXAMINATION: General: Mr. Kern is a middle-aged black male who is sitting up in bed. He is resting comfortably and appears to be in no acute distress. HEENT: PERRL. EOMI. Nonicteric sclerae. Hearing grossly intact. Oral mucous membranes are moist. There are no lesions. The pharynx is clear. Cardiovascular: Regular rate and rhythm without murmurs, rubs, clicks, or gallops. There is no JVD. There is no peripheral edema. Radial and pedal pulses are palpable. Pulmonary: Symmetrical chest expansion without the use of accessory muscles. Lungs: Clear to auscultation bilaterally without rhonchi , wheezes, or rubs. No digital clubbing or cyanosis. Abdomen: Flat. Bowel sounds in all quadrants. Soft, nontender to palpation. Musculoskeletal: The patient moves all extremities. Neuro: The patient is awake. He is alert and oriented x3 with cranial nerves grossly intact. Strength is 5/5 bilaterally in the upper and lower extremities. Vital Signs: Temperature 97.9 oral, heart rate 75, respiratory rate 16, oxygen saturation 99% on room air, blood pressure 137/82. DISCHARGE PLAN: Mr. Kern is stable for discharge to home. CONDITION: Good. DIET: Low-fat/heart-healthy diet for elevated LDL cholesterol. ACTIVITY: Return to regular activity as tolerated. EDUCATION: 1. Follow up with primary care provider in 4 to 7 days to discuss recent hospitalization, new medications, LDL of 141, and the possibility of starting statin medication. 2. Return to the ER or nearest hospital if you experience any worsening of symptoms, chest pain or discomfort, shortness of breath, dizziness, lightheadedness, loss of consciousness, high fevers, chills, night sweats, or any other worrisome signs or symptoms. This is a summarized report of a complex medical history and hospital stay. For further details, please see the entire medical record. TIME SPENT: Approximately 45 minutes were spent on this discharge, greater than half that time was spent [id number] with the patient discussing discharge plans and instructions. ALESSANDRA YU [id number]/[facility] #: [id number] TONY
== END 2019-09-26 17:00 | disposition home or self-care (01) ==
LOC: ED 02:44 → MEDTELE 08:02 → EEVIPCON 08:02 → MEDTELE 09-23 08:59
PROVIDERS: ADMIT Internal Medicine; ATTEND Internal Medicine
DX: R07.9 Chest pain, unspecified (principal); R06.02 Shortness of breath; F22 Delusional disorders; R94.31 Abnormal electrocardiogram [ECG] [EKG]
CPT/HCPCS: 36415; 71046; 71275; 80048; 80061; 80076; 82247; 83690; 83735; 84484; 85025; 93005; 93306; 93351; 93352; 99283; A9270-GY; C8929; C8930; G0378; Q9967

== ENCOUNTER 2019-12-14 12:52 | Inpatient (IN) | payer OTHER ==
--- NOTE | 2019-12-14 13:08 | ED ---
Psychiatric Complaint - HPI Summary HPI Summary: The patient is a 49 y/o male brought in by EMS and police as 9[address] to [facility] with concern for disorientation today. Per EMS and police, the patient has been staying in the lobby of a hotel and will not leave because he was sent here by the [facility] [employer] and is waiting for them to confirm the reservation. Police have been called multiple times without him leaving the complex. Patient denies concern for being in the hotel and states we must speak with his 3rd pressman to obtain information, and the police have found the wrong person. He was uncooperative with police and EMS when getting on the stretcher, but he is more calm in the ED. He is not in any pain. No stated PMHx. No stated FHx. Nonsmoker, no EtOH, no substance use. Medications reviewed. Allergies noted. - History Of Current Complaint Hx Obtained From: Patient, EMS, Other: - police Onset/Duration: Still Present Severity Currently: Moderate Alleviating Factor(s): Nothing Associated Signs And Symptoms: Positive: Paranoid Behavior - Allergies/Home Medications Allergies/Adverse Reactions: Allergies Allergy/AdvReac Type Severity Reaction Status Date / Time paliperidone [From Invega] Allergy Joint Pain Verified 09/22/19 08:08 Home Medications: Home Medications NK [No Home Medications Reported] 12/14/19 [History Confirmed 12/14/19] PMH/Surg Hx/FS Hx/Imm Hx Endocrine/Hematology History: Denies: Hx Diabetes Cardiovascular History: Reports: Hx Angina Denies: Hx Hypertension Sensory History: Reports: Hx Contacts or Glasses - Contacts Denies: Hx Hearing Aid, Hx Hearing Problem Opthamlomology History: Reports: Hx Contacts or Glasses - Contacts - Surgical History Surgical History: None Surgery Procedure, Year, and Place: none Infectious Disease History: No Infectious Disease History: Denies: Traveled Outside the [place] in Last 30 Days - Family History Known Family History: Negative: Cardiac Disease, Diabetes - Social History Alcohol Use: None Hx Substance Use: No Substance Use Type: Reports: None Hx Tobacco Use: No Smoking Status (MU): Never Smoked Tobacco Review of Systems Negative: Fever Positive: Other - disoriented All Other Systems Reviewed And Are Negative: Yes Physical Exam - Summary Physical Exam Summary: General: Well appearing, no distress HEENT: PERRL Cardiovascular: Skin is well perfused Pulmonary: No respiratory distress, no tachypnea Abdomen: Non-distended Skin: Warm, pink, dry MSK: No edema Psych: Pressured speech, tangential, hyperverbal Neuro: A&Ox3 Triage Information Reviewed: Yes Vital Signs On Initial Exam: Initial Vitals Temp Pulse Resp BP Pulse Ox 98.2 F 118 16 158/88 99 12/14/19 12:53 12/14/19 12:53 12/14/19 12:53 12/14/19 12:53 12/14/19 12:53 Vital Signs Reviewed: Yes Procedures - Sedation Patient Received Moderate/Deep Sedation with Procedure: No Diagnostics - Vital Signs Vital Signs Temp Pulse Resp BP Pulse Ox 12/14/19 12:53 98.2 F 118 16 158/88 99 - Laboratory Result Diagrams: 12/14/19 14:12 12/14/19 14:12 Lab Statement: Any lab studies that have been ordered have been reviewed, and results considered in the medical decision making process. - EKG 1610 Cardiac Rate: NL - 96 BPM EKG Rhythm: Sinus Rhythm Summary of EKG Findings: An EKG at 1610 reveals normal sinus rhythm at 96 BPM, T -wave inversions in lead I. ED physician has reviewed and interpreted this EKG. Re-Evaluation - Re-Evaluation First Eval Re-Evaluation Time: 13:10 Comment: Patient is medically clear for MHE Second Eval Re-Evaluation Time: 13:45 Comment: After mulitple attempts to deescalate, including with psychiatry, patient is uncooperative, chemical restraints will be placed Third Eval Re-Evaluation Time: 14:15 Comment: Patient is resting Course/Dx - Course Course Of Treatment: 49 y/o male w hx of pyschosis p/w paranoia and delusions. On arrival to ED, patient is calm but uncooperative. States we have to call the [facility] for permission. Patient declining to change to gown, had psychiatry team as well as nursing try to deescalate. Patient still refusing to gown so patient was given Haldol, Benadryl Ativan which he willingly took. Patient resting afterwards. - Differential Dx/Clinical Impression Provider Diagnosis: Unspecified psychosis - Physician Notifications Discussed Care Of Patient With: Karl Bhatt - psychiatry Instructed by Provider To: Other - Dr. Bhatt and mental health staff have evaluated the patient and have determined transfer disposition necessary, dx unspecified psychotic disorder Discharge ED - Sign-Out/Discharge Documenting (check all that apply): Sign-Out Patient Signing out patient TO: Twin Louis - Patient is a sign-out to Dr. Twin Louis MD, at change of shift at 2200 on 12/14/19, pending Abd/Pel CT and disposition. - Discharge Plan Condition: Stable Disposition: PSYCHIATRIC FACILITY-OTHER Referrals: Marito Decker MD [Primary Care Provider] - - Billing Disposition and Condition Condition: STABLE Disposition: Psychiatric Facility Other - Attestation Statements Document Initiated by Scribe: Yes Documenting Scribe: Berta Moss Provider For Whom Scribe is Documenting (Include Credential): Dr. Nader Gonzalez MD Scribe Attestation: Berta Espino, scribed for Dr. Nader Gonzalez MD on 12/14/19 at 2111. Scribe Documentation Reviewed: Yes Provider Attestation: The documentation as recorded by the Berta crawley accurately reflects the service I personally performed and the decisions made by me, Dr. Nader Gonzalez MD Status of Scribe Document: Viewed - Assessment for Patient Restraint Evaluation of the Patient's Immediate Situation: Patient not cooperative w undressing into gown for safety. D/w patient multiple times need for gown. Patient requested to read bill of rights which was given. Also requesting to [facility] Given haldol/benadryl/ativan which he took willingly. Patient's Reaction to Intervention: tolerated well, resting Patient's Medication and Behavioral Condition: psychosis, responsive to medications, stable Evaluate Need for Continued Restraint: Terminate - no further intervention required
[2019-12-14] MEDS ORDERED: LORazepam INJ* 2 MG/ML 1 ML VIAL ONE ×2 (13:37→13:45)
[2019-12-14] MEDS ORDERED: Haloperidol INJ IV/IM* 5 MG/ML AMP ONE (13:45)
[2019-12-14] MEDS ORDERED: diPHENhydraMINE IV* 50 MG/ML 1 ml VIAL (BENADRYL) ONE (13:45)
[2019-12-14 14:21] LABS: ABS Eosinophils 0.1 10^3/ul (0-0.6); ABS Monocytes 0.6 10^3/ul (0-0.8); ABS Neutrophils 3.9 10^3/ul (1.5-7.7); Eosinophil % 1.6 %; Hematocrit 41 % (42-52); Hemoglobin 13.9 g/dL (14.0-18.0); Lymphocyte % 17.4 %; Mean Corpuscular HGB Conc 34 g/dL (31-36); Mean Corpuscular Hemoglobin 30 pg (27-31); Mean Corpuscular Volume 89 fL (80-94); Mean Platelet Volume 10.2 fL (7.4-10.4); Platelet Count 149 10^3/uL (150-450); Red Blood Count 4.59 10^6 /uL (4.18-5.48); Red Cell Distribution Width 16 % (10-15); White Blood Count 5.6 10^3/uL (3.5-10.8)
[2019-12-14 15:18] LABS: Acetaminophen < 15 mcg/mL; Alcohol < 10 mg/dL (<10)
[2019-12-14 15:27] LABS: ALT 41 U/L (7-52); AST 64 U/L (13-39); Albumin 4.3 g/dL (3.2-5.2); Albumin/Globulin Ratio 1.5 (1-3); Alkaline Phosphatase 74 U/L (34-104); Anion Gap 13 mmol/L (2-11); Blood Urea Nitrogen 18 mg/dL (6-24); CO2 Carbon Dioxide 19 mmol/L (22-32); Chloride 105 mmol/L (101-111); EGFR African American 90.6 (>60); EGFR Non-African American 74.9 (>60); Globulin 2.8 g/dL (2-4); Glucose 117 mg/dL (70-100); Potassium 3.5 mmol/L (3.5-5.0); Sodium 137 mmol/L (135-145); Total Protein 7.1 g/dL (6.4-8.9)
[2019-12-14 15:33] LABS: TSH (Thyroid Stimulating Horm) 0.54 mcIU/mL (0.34-5.60)
[2019-12-14 15:59] LABS: Salicylate < 30.00 mg/dL (<30)
--- NOTE | 2019-12-15 02:54 | ED ---
Progress - Progress Note Progress Note: Pt is a signout from Dr. Gonzalez pending MH transfer. Re-Evaluation - Re-Evaluation First Eval Re-Evaluation Time: 13:10 Second Eval Re-Evaluation Time: 13:45 Third Eval Re-Evaluation Time: 14:15 Course/Dx - Course Course Of Treatment: Pt is a signout from Dr. Gonzalez pending MH transfer. Pt stable this shift. He will be signed out to Dr. Lowery at 0700 7on 12/16/2019 pending MH transfer. - Diagnoses Provider Diagnoses: Unspecified psychosis - Provider Notifications Instructed by Provider To: Other - Dr. Bhatt and mental health staff have evaluated the patient and have determined transfer disposition necessary, dx unspecified psychotic disorder Discharge ED - Sign-Out/Discharge Documenting (check all that apply): Sign-Out Patient, Receiving Sign-Out Signing out patient TO: Noah Lowery Receiving patient FROM: Nader Gonzalez - Discharge Plan Condition: Stable Disposition: PSYCHIATRIC FACILITY[place] [place] - Billing Disposition and Condition Condition: STABLE Disposition: Psychiatric Facility [facility] - Attestation Statements Document Initiated by Scribe: Yes Documenting Scribe: Suri Omer Provider For Whom Scribe is Documenting (Include Credential): Twin Louis MD. Scribe Attestation: Suri Espino scribed for Twin Louis MD. on 12/15/19 at 2045. Scribe Documentation Reviewed: Yes Provider Attestation: The documentation as recorded by the scribeSuri accurately reflects the service I personally performed and the decisions made by Twin newby MD. Status of Scribe Document: Viewed
[2019-12-15 04:39] LABS: Urine Appearance Clear; Urine Bilirubin Negative (Negative); Urine Blood Negative (Negative); Urine Color Yellow; Urine Glucose Negative (Negative); Urine Ketones 1+ (Negative); Urine Nitrite Negative (Negative); Urine Protein Negative (Negative); Urine Specific Gravity 1.023 (1.010-1.030); Urine Urobilinogen Negative (Negative)
[2019-12-15 04:59] LABS: Urine Benzodiazepine Screen None Detected (None Detect); Urine Opiates Screen None Detected (None Detect)
--- NOTE | 2019-12-15 07:14 | ED ---
Progress - Progress Note Progress Note: Patient is received as a sign out from Dr. Louis to Dr. Katz at 0700 . This mental health patient is currently slated to be transferred to another psychiatric facility. 1032 - there is an available psychiatric bed for the patient at this time, patient will be admitted to [facility] psych. Re-Evaluation - Re-Evaluation First Eval Re-Evaluation Time: 13:10 Comment: Patient is medically clear for MHE Second Eval Re-Evaluation Time: 13:45 Comment: After mulitple attempts to deescalate, including with psychiatry, patient is uncooperative, chemical restraints will be placed Third Eval Re-Evaluation Time: 14:15 Comment: Patient is resting Fourth Eval Re-Evaluation Time: 09:44 Comment: 0944 12/15/19 Patient has been in good control, he will be moved to [facility] psych annex. Course/Dx - Course Course Of Treatment: Patient was initially going to be transferred to another hospital but a bed opened up here and was admitted here. - Diagnoses Provider Diagnoses: Unspecified psychosis - Provider Notifications Instructed by Provider To: Other - Dr. Bhatt and mental health staff have evaluated the patient and have determined transfer disposition necessary, dx unspecified psychotic disorder Discharge ED - Sign-Out/Discharge Documenting (check all that apply): Receiving Sign-Out Receiving patient FROM: Twin Louis - Discharge Plan Condition: Stable Disposition: PSYCHIATRIC FACILITY[place] - Billing Disposition and Condition Condition: STABLE Disposition: Psychiatric Facility [facility] - Attestation Statements Document Initiated by Scribe: Yes Documenting Scribe: ARSENIO MARTI Provider For Whom Maxine is Documenting (Include Credential): RONEY KATZ MD Scribe Attestation: ARSENIO Espino, scribed for RONEY KATZ MD on 12/15/19 at 1700. Scribe Documentation Reviewed: Yes Provider Attestation: The documentation as recorded by the ARSENIO crawley accurately reflects the service I personally performed and the decisions made by me, RONEY KATZ MD Status of Scribe Document: Viewed
[2019-12-15] MEDS ORDERED: Al Hydrox/Mg Hydrox/Simet LIQ* 30 ML UDC PO PRN (10:32)
[2019-12-15] MEDS ORDERED: Acetaminophen TAB* 325 MG PO PRN (10:32)
[2019-12-15] MEDS ORDERED: chlorproMAZINE TAB* 100 MG PO PRN (10:33)
--- NOTE | 2019-12-15 10:41 | HP ---
H&P (Free Text) History and Physical: Justification for admission: Immediate Safety. CC "I live at the [place]" The patient was brought to [facility] by police after refusing to leave hotel property and stating that they need to contact the [place] if they need to know anything. Patient stated that he lives at the [place] for the last 4 years, and is in [place] passing through. The patient reported that he has family that lives in [place], and was visiting them on his way back to [facility]. The patient stated that if anyone wants to know information about him to call the extruding press adjuster. He denied access to firearms or stockpiles of medications. Patient defers most questions by saying you have to contact the extruding press adjuster of the [place]. He reported adequate sleep and appetite. The patient denied suicidal and or homicidal ideation intent or plan. The patient denied auditory and/ or visual hallucinations. Psychosis Does not endorse hearing things that other people do not hear or seeing things other people do not see. Denied feeling that TV is making references. Denied feeling that people are spying , following , or reading their thoughts. MDD Denied feeling depressed. Denied having diminished interests which were found to be enjoyable in the past. Denied having crying spells , feeling empty inside , feelings of hopelessness , and worthlessness. Denied unintentional weight loss and appetite. Denied interruption of sleep , or feeling tired throughout the day. Denied loss of energy or lack of motivation to complete tasks. Denied overwhelming feelings of guilt or decreased concentration. Denied recurrent thoughts of . Denied thoughts that they would be better off . Anxiety Denied having symptoms of anxiety such as having times where heart feels that it is beating out of chest , sweaty palms, or shallow breathing. Denied having uncomfortable or intrusive thoughts. Denied feeling restless, high strung, or worrying too much most of the time. Bipolar Denied symptoms of maximus such as having many ideas at once. Denied increased talkativeness where no one can interrupt. Denied feeling irritable most of the time while having an persistent abundance of energy most of the day without the use of energy drinks, stimulants, or recreational drug use. Denied an increase in intensity in goal directed activities. Denied having the decreased need to sleep for days , having prolonged elevated mood , or feeling on top of the world. Denied impulsive risky sexual encounters. Denied spending money recklessly , going on spending sprees wiping out savings. Denied impulsively traveling out of town or country, having super briscoe, and unrealistic wealth or fame. Phobias: Patient denied having excessive fear of a particular thing or situation. Eating disorders: Patient denied having excessive eating habits or feelings of guilt after eating. Denied repeated episodes of self induced vomiting after eating. PTSD Denied flashbacks, nightmares and avoidance of a prior traumatic event. PAST PSYCHIATRIC HISTORY: Prior Diagnosis : Delusional Disorder History of past Psychiatric Hospitalizations: Denied prior psychiatric admission. History of past suicide/homicide attempts : Denied past suicide attempts or self injurious behaviors. Outpatient follow-up: None Medications: Past trials of medications include invega with "bad" reaction. Guardianship: None. FAMILY HISTORY: - Suicide: Denied family history of suicide. - Mental illness: Denied a history of mental health in immediate family members. - Substance abuse: Denied substance abuse among family members. SUBSTANCE ABUSE HISTORY: - EtOH: Uses occasionally during social events. No associated legal issues, blackouts, seizures, DTs or past hospitalizations due to alcohol. - Tobacco: Denied - Cannabis: Denied - Heroin: Denied - Cocaine: Denied - Substance abuse treatment: Denied past substance abuse treatment SOCIAL HISTORY: - Denied a history of childhood physical and or sexual abuse Born in [facility] and adopted by a women who lives in [place] - Education: Masters Degree from [employer] in Epidemiology. No history of special education. - Living situation: unknown - Employment history: [employer] - Relationship: Single and has no children. - service history: Denied PAST MEDICAL HISTORY: Vitaligo that started 3.5 years ago. Denied heart disease, diabetes, cancer and/ or other medical conditions. - Allergies: Invega Physical Exam: Please see ED note Mental Status Exam on Admission APPEARANCE : 49 year old male who appears stated age with multiple white patches on his face from loss of skin pigment . Patient is not malodourous, and appears to have fair hygiene and grooming. BEHAVIOR: Cooperative , calm EYE CONTACT: Fair PSYCHOMOTOR ACTIVITY: No psychomotor agitation or retardation. MOVEMENTS: No abnormal movements observed. SPEECH : Normal rate, rhythm, volume and tone. MOOD : "Fine " AFFECT : Type is elated Range is restricted Mood Incongruent THOUGHT PROCESS: Formulated and organized in a logical, linear goal directed manner. THOUGHT CONTENT: multiple delusions PERCEPTION: No current auditory or visual hallucinations. Doesnt appear to be responding to internal cues. No evidence of depersonalization , de-realization, or illusions SUICIDALITY Denied suicidal ideation, intent or plan. HOMICIDALITY Denied homicidal ideation, intent or plan. Insight/judgment: Poor insight and judgment ORIENTATION: Oriented to self, location, and time. Diagnosis on Admission: Delusional Disorder. Assessment: 49 year old Male with history of delusional disorder came to the hospital and was admitted to the BSU at [facility]. Plan #Admit to BSU, Q15 minute observation. Start regular diet. Encourage participation in activities on the milieu. #Patient evaluated in ED and was determined by the emergency room Physician to be medically fit for admission to the BSU. # Justification for Admission: For immediate safety per outlined in the [place] Mental Hygiene Code. # The patient requires psychiatric inpatient admission at this time to assure safety, receive treatment and work toward stabilization. # Labs ordered: CBC, CMP, UDS, TSH, HBA1c, TSH, Toxicology screen, Urine analysis, and lipid profile. # EKG ordered # Obtain collateral information from brother # Collaboration with Social Work # Start abilify 5mg daily #Goals before discharge include: Decrease delusions Tentative Discharge: Pending psychiatric stabilization The risks, benefits, and alternative treatment options were discussed as well as the risks of refusing treatment. After this discussion and an acknowledgement of this understanding was made. A risk/ benefit assessment of treatment was considered and discussed with the patient. When comparing the risks of treatment with the dangers of not receiving treatment, the benefits of treatment outweigh the treatment risks at this time. Risks of allergy, suicidal ideation, behavioral changes, dystonia, rashes, electrolyte imbalances, movement disorders, cardiac conduction changes, serotonin syndrome, metabolic risks and NMS were among some of the risks discussed. Sodium 137 mmol/L (135-145) 12/14/19 14:12 Potassium 3.5 mmol/L (3.5-5.0) 12/14/19 14:12 BUN 18 mg/dL (6-24) 12/14/19 14:12 Creatinine 1.06 mg/dL (0.67-1.17) 12/14/19 14:12 Calcium 9.0 mg/dL (8.6-10.3) 12/14/19 14:12 AST 64 U/L (13-39) H 12/14/19 14:12 ALT 41 U/L (7-52) 12/14/19 14:12
[2019-12-15] MEDS: ARIPiprazole TAB* 5 MG PO SCH (19:49)
[2019-12-16 08:11] LABS: HDL Cholesterol 48.7 mg/dL
[2019-12-16] MEDS: ARIPiprazole TAB* 5 MG PO SCH (09:35)
--- NOTE | 2019-12-16 14:06 | PN ---
Subjective - Subjective Date of Service: 12/16/19 Service Type: 32842 Hosp care 35 min high complexity Subjective: Nursing Report: Patient was visible on unit, no behavioral incidents. Slept overnight. CC: "Contact the [facility]" Patient was seen and evaluated with Zaida OATES. The patient reported he will go to the [facility] when he is discharged. He has no plans for violence and denied homicidal target and said I will go there to live. Patient defers answering questions and says contact the [facility] cutter and presser for any questions. He reported having adequate appetite and sleep. Patient refusing to take medications saying " I do not need them" Objective - General Observations Appearance: Disheveled Appears Stated Age: Yes Stature: WNL Posture: WNL Eye Contact: Average Behavior/Activity: Slowed - Interaction Observations Attitude Towards Examiner: Confused Stated Mood: Expansive Affect: Restricted Speech Pattern/Tone: Normal Volume Thought Process: Impoverished Perception: Depersonalization Thought Content: Preoccupation/Ruminations Hallucination Type: Denies Delusion Type: Grandeur - Cognitive Function Orientation: A&O x 4 Level of Consciousness: Awake - Medication Compliance Cooperative with Inpatient Medication Regimen: No - Group Participation Participates in Group Activities: No Assessment - Assessment Merits Inpatient Hospitalization: For Immediate Safety Clinical Impression: 49 year old Male with history of delusional disorder came to the hospital saying he lives at the [place] [facility] and answers questions saying to contact the cutter and presser and was admitted to the BSU at [facility]. Plan - Plan Treatment Plan: Name: LLOYD REDMOND Birthdate: 1970 [id number] Plan #Q30 minute observation. # The patient requires psychiatric inpatient admission at this time to assure safety, receive treatment and work toward stabilization. # EKG ordered # Obtain collateral information from brother # Collaboration with Target Man Zaida Russell # Continue Abilify 5mg daily # CT brain w/o contrast for late onset delusions #Goals before discharge include: Decrease delusions Tentative Discharge: Pending psychiatric stabilization Sodium 137 mmol/L (135-145) 12/14/19 14:12 Potassium 3.5 mmol/L (3.5-5.0) 12/14/19 14:12 BUN 18 mg/dL (6-24) 12/14/19 14:12 Creatinine 1.06 mg/dL (0.67-1.17) 12/14/19 14:12 Hemoglobin A1c 6.1 % (4.0-5.6) H 12/16/19 07:32 Calcium 9.0 mg/dL (8.6-10.3) 12/14/19 14:12 AST 64 U/L (13-39) H 12/14/19 14:12 ALT 41 U/L (7-52) 12/14/19 14:12 Triglycerides 95 mg/dL 12/16/19 07:32 Cholesterol 194 mg/dL 12/16/19 07:32 LDL Cholesterol 126 mg/dL 12/16/19 07:32 Continued Medication Management: Continue Outpt Medication Medications: Current Medications Acetaminophen (Tylenol Tab*) 650 mg PO Q4H PRN PRN Reason: for pain; or Temp >101 F Al Hydrox/Mg Hydrox/Simethicone (Maalox Plus*) 30 ml PO Q4H PRN PRN Reason: INDIGESTION Aripiprazole (Abilify Tab*) 5 mg PO DAILY SHAY Last Admin: 12/16/19 09:35 Dose: Not Given Chlorpromazine HCl (Thorazine Tab*) 100 mg PO Q6H PRN PRN Reason: AGITATION - Discharge Plan Discharge Plan: Inpatient Hospitalization
[2019-12-16] MEDS ORDERED: Iohexol 300* (CONTRAST) 10 ML SDV IV ONE (16:33)
[2019-12-17] MEDS: ARIPiprazole TAB* 5 MG PO SCH (09:26)
[2019-12-18] MEDS: ARIPiprazole TAB* 5 MG PO SCH (10:39)
--- NOTE | 2019-12-18 13:37 | PN ---
Subjective - Subjective Date of Service: 12/18/19 Service Type: 73020 Hosp care 25 min moderate complexity Subjective: The is a 49 year old Male seen today for follow up and medication management. As per nursing staff, the patient tried to elope yesterday.The patient was initially brought in by the police for disorganized behaviors and for refusing to leave hotel property and stating that they need to contact [place] if they need to know anything. Today, the patient was exhibitng selective mutism. He answered all my questions by nodding his head and gesticulating with his hands. He stated that I do not know why they brought me here. I refused to take any medication. He remained non communicating verbally throughout this evaluations. He reported fair sleep, average energy. Appetite is good . He continued to refuse Abilify and Thorazine. He stated that " I do not like medications" He has not been to groups. He denied constipation, mood swings , racing thoughts and manic symptoms. He exhibited bizarre behaviors and somewhat delusional. He appeared to be responding to internal stimuli. No evidence of ritualistic behavior. Objective - General Observations Appearance: Well Groomed Appears Stated Age: Yes Stature: WNL Posture: WNL Eye Contact: Intermittent Behavior/Activity: Peculiar Separation from Parent/Guardian: Unremarkable/Age Appropriate - Interaction Observations Attitude Towards Examiner: Uncooperative Attitude Towards Parent/Guardian: Ignores Parent/Guardian Stated Mood: Dysphoric Affect: Blunted Speech Pattern/Tone: Unclear Thought Process: Disorganized, Blocking Perception: Depersonalization Thought Content: Preoccupation/Ruminations Hallucination Type: None Delusion Type: Thought Withdrawal - Cognitive Function Orientation: A&O x 4, Confused Level of Consciousness: Awake, Alert Cognition: WNL Insight: Difficulty Acknowledging Presence of Psyciatric Problems Judgment Within Normal Limits: No Ability to Make Reasonable Decisions: Moderately Impaired - Medication Compliance Cooperative with Inpatient Medication Regimen: No - Group Participation Participates in Group Activities: No Assessment - Assessment Merits Inpatient Hospitalization: For Immediate Safety Inpatient DSM-V Dx: F22 Clinical Impression: 49 year old Male with history of delusional disorder came to the hospital saying he lives at the [facility] and answers questions saying to contact the wad compressor operator adjuster and was admitted to the BSU at [facility]. BSU: Problem List - Patient Problems (1) Delusional disorder Current Visit: No Status: Acute Priority: Medium Code(s): F22 - DELUSIONAL DISORDERS SNOMED Code(s): 34633107 Plan - Plan Treatment Plan: Name: LLOYD REDMOND Birthdate: 1970 [id number] Plan #Q30 minute observation. # The patient requires psychiatric inpatient admission at this time to assure safety, receive treatment and work toward stabilization. # EKG ordered # Obtain collateral information from brother # Collaboration with Software Licensing Executive Zaida Russell # Continue Abilify 5mg daily # CT brain w/o contrast for late onset delusions #Goals before discharge include: Decrease delusions Treatment over objection may be needed. Elopement risk precaution is advised Continue current medication management Tentative Discharge: Pending psychiatric stabilization Sodium 137 mmol/L (135-145) 12/14/19 14:12 Potassium 3.5 mmol/L (3.5-5.0) 12/14/19 14:12 BUN 18 mg/dL (6-24) 12/14/19 14:12 Creatinine 1.06 mg/dL (0.67-1.17) 12/14/19 14:12 Hemoglobin A1c 6.1 % (4.0-5.6) H 12/16/19 07:32 Calcium 9.0 mg/dL (8.6-10.3) 12/14/19 14:12 AST 64 U/L (13-39) H 12/14/19 14:12 ALT 41 U/L (7-52) 12/14/19 14:12 Triglycerides 95 mg/dL 12/16/19 07:32 Cholesterol 194 mg/dL 12/16/19 07:32 LDL Cholesterol 126 mg/dL 12/16/19 07:32 HBAIC IS 6.1% Medications: Current Medications Acetaminophen (Tylenol Tab*) 650 mg PO Q4H PRN PRN Reason: for pain; or Temp >101 F Al Hydrox/Mg Hydrox/Simethicone (Maalox Plus*) 30 ml PO Q4H PRN PRN Reason: INDIGESTION Aripiprazole (Abilify Tab*) 5 mg PO DAILY SHAY Last Admin: 12/18/19 10:39 Dose: Not Given Chlorpromazine HCl (Thorazine Tab*) 100 mg PO Q6H PRN PRN Reason: AGITATION - Discharge Plan Additional Comments: Plan -: Treatment over objection may be needed. Elopement risk precaution is advised Continue current medication management
[2019-12-19] MEDS: ARIPiprazole TAB* 5 MG PO SCH (11:55)
[2019-12-19] MEDS ORDERED: Iohexol 300* (CONTRAST) 10 ML SDV IV ONE (12:23)
--- NOTE | 2019-12-19 13:32 | PN ---
Subjective - Subjective Date of Service: 12/19/19 Service Type: 76734 Hosp care 35 min high complexity Subjective: Nursing Report: Patient mostly secluded to his bedroom, Attempted to Elope from the unit. Came out of room naked CC: "I do not have mental illness" Patient was seen and evaluated today. The patient reported he does not need medications and agrees to having the CT brain done. Patient stated he does not have a mental illness so he does not need medications. His adoptive brother was contacted who stated he has a protection order after a incident in August where Lloyd became paranoid and hostile and would not leave. Per staff report the patient came out of his room naked and attempted to elope from the unit. Objective - General Observations Appearance: Disheveled Appears Stated Age: Yes Stature: Thin Posture: WNL Eye Contact: Average Behavior/Activity: Peculiar - Interaction Observations Attitude Towards Examiner: Evasive Stated Mood: Irritable Affect: Restricted Speech Pattern/Tone: Normal Volume Thought Process: Blocking, [place] Perception: Depersonalization Thought Content: Grandiose Thought Process: Lethality: Paranoid Ideation Hallucination Type: Denies Delusion Type: Grandeur - Cognitive Function Orientation: A&O x 4 Level of Consciousness: Awake Insight: Mostly Blames Others for Problems, Difficulty Acknowledging Presence of Psyciatric Problems - Medication Compliance Cooperative with Inpatient Medication Regimen: No - Group Participation Participates in Group Activities: No Assessment - Assessment Merits Inpatient Hospitalization: For Immediate Safety Inpatient DSM-V Dx: F22 Clinical Impression: 49 year old Male with history of delusional disorder came to the hospital saying he lives at the [facility] and answers questions saying to contact the hot punch press operator and was admitted to the BSU at [facility]. Plan - Plan Treatment Plan: Name: LLOYD REDMOND Birthdate: 1970 [id number] Plan #Q15 minute observation. # The patient requires psychiatric inpatient admission at this time to assure safety, receive treatment and work toward stabilization. # EKG ordered QTc 449 # Collaboration with Results Engineer Zaida Russell # Continue Abilify 5mg daily # CT brain w/o contrast show no abnormal findings # 2PC and TOO paperwork completed # Collateral information obtained by Guille Maza [phone] adoptive brother #Goals before discharge include: Decrease delusions Tentative Discharge: Pending psychiatric stabilization Sodium 137 mmol/L (135-145) 12/14/19 14:12 Potassium 3.5 mmol/L (3.5-5.0) 12/14/19 14:12 BUN 18 mg/dL (6-24) 12/14/19 14:12 Creatinine 1.06 mg/dL (0.67-1.17) 12/14/19 14:12 Hemoglobin A1c 6.1 % (4.0-5.6) H 12/16/19 07:32 Calcium 9.0 mg/dL (8.6-10.3) 12/14/19 14:12 AST 64 U/L (13-39) H 12/14/19 14:12 ALT 41 U/L (7-52) 12/14/19 14:12 Triglycerides 95 mg/dL 12/16/19 07:32 Cholesterol 194 mg/dL 12/16/19 07:32 LDL Cholesterol 126 mg/dL 12/16/19 07:32 Continued Medication Management: Continue Outpt Medication Medications: Current Medications Acetaminophen (Tylenol Tab*) 650 mg PO Q4H PRN PRN Reason: for pain; or Temp >101 F Al Hydrox/Mg Hydrox/Simethicone (Maalox Plus*) 30 ml PO Q4H PRN PRN Reason: INDIGESTION Aripiprazole (Abilify Tab*) 5 mg PO DAILY SHAY Last Admin: 12/19/19 11:55 Dose: Not Given Chlorpromazine HCl (Thorazine Tab*) 100 mg PO Q6H PRN PRN Reason: AGITATION - Discharge Plan Discharge Plan: Inpatient Hospitalization
[2019-12-20] MEDS: ARIPiprazole TAB* 5 MG PO SCH (09:58)
--- NOTE | 2019-12-20 10:19 | PN ---
Subjective - Subjective Date of Service: 12/20/19 Service Type: 97830 Hosp care 35 min high complexity Subjective: Nursing Report: Patient was visible on unit, no behavioral incidents. Slept overnight. CC: "My CT is normal so discharge me" Patient was seen and evaluated today. When the patient was told about the report of his prior hospitalizations he expressed that his name must be wrong in the record. He is persistently saying that if his CT is normal then that means you have to let be leave. Patient was advised of available treatments. Patient declined medications, and did not understand after explanation why the court system had to be involved. Patient unable to recognize the need for treatment. Objective - General Observations Appearance: Disheveled Appears Stated Age: Yes Stature: Thin Posture: WNL Eye Contact: Average Behavior/Activity: Peculiar, Impulsive - Interaction Observations Attitude Towards Examiner: Anxious, Defensive Stated Mood: Irritable Affect: Restricted Speech Pattern/Tone: Perseverating Thought Process: [place] Thought Content: Paranoid Thought Process: Lethality: Paranoid Ideation Hallucination Type: Denies Delusion Type: Grandeur - Cognitive Function Orientation: A&O x 4 Level of Consciousness: Awake Ability to Make Reasonable Decisions: Serverely Impaired - Medication Compliance Cooperative with Inpatient Medication Regimen: No - Group Participation Participates in Group Activities: No Assessment - Assessment Merits Inpatient Hospitalization: For Immediate Safety Inpatient DSM-V Dx: F22 Clinical Impression: 49 year old Male with history of delusional disorder came to the hospital saying he lives at the [place] and answers questions saying to contact the press operator carbon blocks and was admitted to the BSU at [facility]. Plan - Plan Treatment Plan: Name: LLOYD REDMOND Birthdate: 1970 [id number] Plan #Q15 minute observation. # MMPI # Presenting delusions, negative symptoms, and paranoia combined with the patients past psychiatric history and decline of functioning are indicative of schizophrenia # The patient requires psychiatric inpatient admission at this time to assure safety, receive treatment and work toward stabilization. # EKG ordered QTc 449 # Collaboration with Vehicle Service Attendant Zaida Russell # Continue Abilify 5mg daily # CT brain w/o contrast show no abnormal findings # 2PC and TOO paperwork completed # Collateral information obtained by Guille Maza [phone] adoptive brother #Goals before discharge include: Decrease delusions Tentative Discharge: Pending psychiatric stabilization Sodium 137 mmol/L (135-145) 12/14/19 14:12 Potassium 3.5 mmol/L (3.5-5.0) 12/14/19 14:12 BUN 18 mg/dL (6-24) 12/14/19 14:12 Creatinine 1.06 mg/dL (0.67-1.17) 12/14/19 14:12 Hemoglobin A1c 6.1 % (4.0-5.6) H 12/16/19 07:32 Calcium 9.0 mg/dL (8.6-10.3) 12/14/19 14:12 AST 64 U/L (13-39) H 12/14/19 14:12 ALT 41 U/L (7-52) 12/14/19 14:12 Triglycerides 95 mg/dL 12/16/19 07:32 Cholesterol 194 mg/dL 12/16/19 07:32 LDL Cholesterol 126 mg/dL 12/16/19 07:32 Continued Medication Management: Continue Outpt Medication Medications: Current Medications Acetaminophen (Tylenol Tab*) 650 mg PO Q4H PRN PRN Reason: for pain; or Temp >101 F Al Hydrox/Mg Hydrox/Simethicone (Maalox Plus*) 30 ml PO Q4H PRN PRN Reason: INDIGESTION Aripiprazole (Abilify Tab*) 5 mg PO DAILY SHAY Last Admin: 12/20/19 09:58 Dose: Not Given Chlorpromazine HCl (Thorazine Tab*) 100 mg PO Q6H PRN PRN Reason: AGITATION - Discharge Plan Discharge Plan: Inpatient Hospitalization
[2019-12-21] MEDS: ARIPiprazole TAB* 5 MG PO SCH (09:13)
--- NOTE | 2019-12-21 14:52 | PN ---
Subjective - Subjective Date of Service: 12/21/19 Service Type: 25104 Hosp care 35 min high complexity Subjective: Nursing Report: Patient was visible on unit, no behavioral incidents. Slept overnight. CC: "If you dont have a genetic test then discharge me" Patient was seen and evaluated today. The patient reported he only will believe that he has mental illness if he sees a genetic test that indicates that he does. The patient reported he does not have mental illness and is refusing to take medication. Patient stated he will go live at [facility] and is unable to contract for safe discharge plan. He reported having adequate appetite and sleep. Per nursing no behavioral issues or overnight events reported. Objective - General Observations Appearance: Disheveled Appears Stated Age: Yes Stature: Thin Posture: Tense Eye Contact: Intense Behavior/Activity: Peculiar, Impulsive - Interaction Observations Attitude Towards Examiner: Anxious, Defensive, Mistrustful Stated Mood: Expansive Affect: Restricted Speech Pattern/Tone: Appropriate Thought Process: Coherent Perception: WNL Thought Content: Paranoid, Grandiose Thought Process: Lethality: Paranoid Ideation Hallucination Type: Auditory Delusion Type: Grandeur - Cognitive Function Orientation: A&O x 4 Level of Consciousness: Awake - Medication Compliance Cooperative with Inpatient Medication Regimen: No - Group Participation Participates in Group Activities: No Assessment - Assessment Merits Inpatient Hospitalization: For Immediate Safety Inpatient DSM-V Dx: F22 Clinical Impression: 49 year old Male with history of delusional disorder came to the hospital saying he lives at the [facility] and answers questions saying to contact the pressurised container filler and was admitted to the BSU at [facility]. Plan - Plan Treatment Plan: Name: LLOYD REDMOND Birthdate: 1970 [id number] Plan #Q15 minute observation. # MMPI # Presenting delusions, negative symptoms, and paranoia combined with the patients past psychiatric history and decline of functioning are indicative of chronic mental illness such as schizophrenia # The patient requires psychiatric inpatient admission at this time to assure safety, receive treatment and work toward stabilization. # EKG ordered QTc 449 # Collaboration with Brusher Zaida Russell # Continue Abilify 5mg daily # CT brain w/o contrast show no abnormal findings # Discussed treatment options including therapy options and patient refused # Discussed patients prior reaction to invega and that given his prior response will not be offered or given. Alternative treatment options that he has had in the past without adverse reactions include zyprexa and patient continues to refuse all treatment options. # TOO paperwork completed # Collateral information obtained by Guille Maza [phone] adoptive brother and Nikki close friend #Goals before discharge include: Engage in treatment Tentative Discharge: Pending psychiatric stabilization Sodium 137 mmol/L (135-145) 12/14/19 14:12 Potassium 3.5 mmol/L (3.5-5.0) 12/14/19 14:12 BUN 18 mg/dL (6-24) 12/14/19 14:12 Creatinine 1.06 mg/dL (0.67-1.17) 12/14/19 14:12 Hemoglobin A1c 6.1 % (4.0-5.6) H 12/16/19 07:32 Calcium 9.0 mg/dL (8.6-10.3) 12/14/19 14:12 AST 64 U/L (13-39) H 12/14/19 14:12 ALT 41 U/L (7-52) 12/14/19 14:12 Triglycerides 95 mg/dL 12/16/19 07:32 Cholesterol 194 mg/dL 12/16/19 07:32 LDL Cholesterol 126 mg/dL 12/16/19 07:32 Continued Medication Management: Continue Outpt Medication Medications: Current Medications Acetaminophen (Tylenol Tab*) 650 mg PO Q4H PRN PRN Reason: for pain; or Temp >101 F Al Hydrox/Mg Hydrox/Simethicone (Maalox Plus*) 30 ml PO Q4H PRN PRN Reason: INDIGESTION Aripiprazole (Abilify Tab*) 5 mg PO DAILY SHAY Last Admin: 12/21/19 09:13 Dose: Not Given Chlorpromazine HCl (Thorazine Tab*) 100 mg PO Q6H PRN PRN Reason: AGITATION - Discharge Plan Discharge Plan: Inpatient Hospitalization
[2019-12-22] MEDS: ARIPiprazole TAB* 5 MG PO SCH (12:08)
--- NOTE | 2019-12-22 13:12 | PN ---
Subjective - Subjective Date of Service: 12/22/19 Service Type: 21282 Hosp care 35 min high complexity Subjective: Nursing Report: Patient was visible on unit, no behavioral incidents last evening. Slept overnight. CC: "I want to talk to the PERIODONTAL ASSISTANT" Patient was seen and evaluated today. The patient reported that he refuses to take medications and that he would like to talk to the PERIODONTAL ASSISTANT of the hospital. He reported having adequate appetite and sleep. The patient reports not attending day groups. Per nursing no behavioral issues or overnight events reported. Patient denies having mental illness Objective - General Observations Appearance: Well Groomed Appears Stated Age: Yes Stature: Tall Posture: Tense Eye Contact: Avoidant Behavior/Activity: Peculiar, Impulsive - Interaction Observations Attitude Towards Examiner: Evasive Attitude Towards Parent/Guardian: Demanding Stated Mood: Expansive Affect: Restricted Speech Pattern/Tone: Normal Volume Thought Process: Impoverished Perception: Derealization Thought Content: Grandiose Thought Process: Lethality: Paranoid Ideation Hallucination Type: Denies Delusion Type: Grandeur - Cognitive Function Orientation: A&O x 4 Level of Consciousness: Awake Insight: Mostly Blames Others for Problems Ability to Make Reasonable Decisions: Serverely Impaired - Medication Compliance Cooperative with Inpatient Medication Regimen: No - Group Participation Participates in Group Activities: No Assessment - Assessment Merits Inpatient Hospitalization: For Immediate Safety Inpatient DSM-V Dx: F22 Clinical Impression: 49 year old Male with history of delusional disorder came to the hospital saying he lives at the [place] and answers questions saying to contact the press clipper and was admitted to the BSU at [facility]. Plan - Plan Treatment Plan: Name: LLOYD REDMOND Birthdate: 1970 [id number] Plan #Q15 minute observation. # MMPI patient filled in multiple answer choice- not completed correctly and unable to be evaluated # Presenting delusions, negative symptoms, and paranoia combined with the patients past psychiatric history and decline of functioning are indicative of chronic mental illness such as schizophrenia # The patient requires psychiatric inpatient admission at this time to assure safety, receive treatment and work toward stabilization. # EKG ordered QTc 449 # Collaboration with Personnel Analyst Zaida Russell # Zyprexa 5mg qhs # CT brain w/o contrast shows no abnormal findings # Discussed treatment options including therapy options and patient refused # Provided print outs and information and clinical studies of various treatment options and the patient declined # Discussed patients prior reaction to invega and assured patient that he will not receive treatments that he has had a prior adverse reaction to. # Alternative treatment options that he has had in the past without adverse reactions include zyprexa and patient continues to refuse all treatment options. # TOO paperwork completed # Collateral information obtained by Guille iLnk [phone] adoptive brother and Nikki close friend #Goals before discharge include: Engage in treatment Tentative Discharge: Pending psychiatric stabilization Sodium 137 mmol/L (135-145) 12/14/19 14:12 Potassium 3.5 mmol/L (3.5-5.0) 12/14/19 14:12 BUN 18 mg/dL (6-24) 12/14/19 14:12 Creatinine 1.06 mg/dL (0.67-1.17) 12/14/19 14:12 Hemoglobin A1c 6.1 % (4.0-5.6) H 12/16/19 07:32 Calcium 9.0 mg/dL (8.6-10.3) 12/14/19 14:12 AST 64 U/L (13-39) H 12/14/19 14:12 ALT 41 U/L (7-52) 12/14/19 14:12 Triglycerides 95 mg/dL 12/16/19 07:32 Cholesterol 194 mg/dL 12/16/19 07:32 LDL Cholesterol 126 mg/dL 12/16/19 07:32 Continued Medication Management: Continue Outpt Medication Medications: Current Medications Acetaminophen (Tylenol Tab*) 650 mg PO Q4H PRN PRN Reason: for pain; or Temp >101 F Al Hydrox/Mg Hydrox/Simethicone (Maalox Plus*) 30 ml PO Q4H PRN PRN Reason: INDIGESTION Aripiprazole (Abilify Tab*) 5 mg PO DAILY SHAY Last Admin: 12/22/19 12:08 Dose: Not Given Chlorpromazine HCl (Thorazine Tab*) 100 mg PO Q6H PRN PRN Reason: AGITATION - Discharge Plan Discharge Plan: Inpatient Hospitalization
[2019-12-22] MEDS: OLANzapine TAB*ODT* 5 MG PO SCH (21:49)
--- NOTE | 2019-12-23 10:12 | PN ---
Subjective - Subjective Date of Service: 12/23/19 Service Type: 13214 Hosp care 35 min high complexity Subjective: Nursing Report: Patient was visible on unit, no behavioral incidents. Slept overnight. CC: "When is my meeting with the GENERAL MILLING SUPERINTENDENT?" Patient was seen and evaluated today. The patient reported he does not need medications and would like to talk to the GENERAL MILLING SUPERINTENDENT of the hospital. He reported having adequate appetite and sleep. The patient is not attending day groups. Per nursing no behavioral issues or overnight events reported. Objective - General Observations Appearance: Disheveled Appears Stated Age: Yes Stature: Thin Posture: Rigid, Tense Eye Contact: Intense Behavior/Activity: Peculiar - Interaction Observations Attitude Towards Examiner: Defensive, Evasive Stated Mood: Anxious Affect: Restricted Speech Pattern/Tone: Quiet Volume Thought Process: Impoverished, [place] Perception: Derealization Thought Content: Grandiose Thought Process: Lethality: Paranoid Ideation Hallucination Type: Denies Delusion Type: Grandeur - Cognitive Function Orientation: A&O x 4 Level of Consciousness: Awake Insight: Mostly Blames Others for Problems, Difficulty Acknowledging Presence of Psyciatric Problems Judgment Within Normal Limits: No - Medication Compliance Cooperative with Inpatient Medication Regimen: No - Group Participation Participates in Group Activities: No Assessment - Assessment Merits Inpatient Hospitalization: For Immediate Safety Inpatient DSM-V Dx: F22 Clinical Impression: 49 year old Male with history of delusional disorder came to the hospital saying he lives at the [facility] and answers questions saying to contact the press box custodian and was admitted to the BSU at [facility]. Plan - Plan Treatment Plan: Name: LLOYD REDMOND Birthdate: 1970 [id number] Plan #Q15 minute observation. # MMPI patient filled in multiple answer choices- not completed correctly and unable to be evaluated # Presenting delusions, negative symptoms, and paranoia combined with the patients past psychiatric history and decline of functioning are indicative of chronic mental illness such as schizophrenia # The patient requires psychiatric inpatient admission at this time to assure safety, receive treatment and work toward stabilization. # EKG ordered QTc 449 # Collaboration with Blanket Folder Zaida Russell # Zyprexa 5mg qhs # CT brain w/o contrast shows no abnormal findings # Discussed treatment options including therapy options and patient refused # Provided print outs and information and clinical studies of various treatment options and the patient declined # Discussed patients prior reaction to invega and assured patient that he will not receive treatments that he has had a prior adverse reaction to. # Alternative treatment options that he has had in the past without adverse reactions include zyprexa and patient continues to refuse all treatment options. # TOO paperwork completed awaiting court date # Collateral information obtained by Guille Maza [phone] adoptive brother and Nikki close friend #Goals before discharge include: Engage in treatment and psychiatric stabilization Tentative Discharge: Pending psychiatric stabilization Sodium 137 mmol/L (135-145) 12/14/19 14:12 Potassium 3.5 mmol/L (3.5-5.0) 12/14/19 14:12 BUN 18 mg/dL (6-24) 12/14/19 14:12 Creatinine 1.06 mg/dL (0.67-1.17) 12/14/19 14:12 Hemoglobin A1c 6.1 % (4.0-5.6) H 12/16/19 07:32 Calcium 9.0 mg/dL (8.6-10.3) 12/14/19 14:12 AST 64 U/L (13-39) H 12/14/19 14:12 ALT 41 U/L (7-52) 12/14/19 14:12 Triglycerides 95 mg/dL 12/16/19 07:32 Cholesterol 194 mg/dL 12/16/19 07:32 LDL Cholesterol 126 mg/dL 12/16/19 07:32 Continued Medication Management: Continue Outpt Medication Medications: Current Medications Acetaminophen (Tylenol Tab*) 650 mg PO Q4H PRN PRN Reason: for pain; or Temp >101 F Al Hydrox/Mg Hydrox/Simethicone (Maalox Plus*) 30 ml PO Q4H PRN PRN Reason: INDIGESTION Chlorpromazine HCl (Thorazine Tab*) 100 mg PO Q6H PRN PRN Reason: AGITATION Olanzapine (Zyprexa * Tab Odt) 5 mg PO BEDTIME SHAY Last Admin: 12/22/19 21:49 Dose: Not Given - Discharge Plan Discharge Plan: Inpatient Hospitalization
[2019-12-23] MEDS: OLANzapine TAB*ODT* 5 MG PO SCH (21:11)
[2019-12-24] MEDS: OLANzapine TAB*ODT* 5 MG PO SCH (21:40)
[2019-12-25] MEDS: OLANzapine TAB*ODT* 5 MG PO SCH (22:10)
--- NOTE | 2019-12-26 15:35 | PN ---
Subjective - Subjective Date of Service: 12/26/19 Service Type: 28933 Hosp care 35 min high complexity Subjective: Nursing Report: Patient was visible on unit, no behavioral incidents. Slept overnight. Refusing medications CC: "I dont have a mental illness" Patient was seen and evaluated today. The patient reported his year of is incorrect and so is his name. He said that he has a case of mistaken identity. He reported having adequate appetite and sleep. Per nursing no behavioral issues or overnight events reported. Objective - General Observations Appearance: Disheveled Appears Stated Age: Yes Stature: WNL Posture: Slumped Eye Contact: Avoidant Behavior/Activity: Peculiar - Interaction Observations Attitude Towards Examiner: Confused, Defensive Stated Mood: Anxious Affect: Restricted Speech Pattern/Tone: Quiet Volume Thought Process: Impoverished Perception: Derealization Thought Content: Paranoid, Grandiose Thought Process: Lethality: Paranoid Ideation Hallucination Type: Denies Delusion Type: Grandeur - Cognitive Function Orientation: A&O x 4 Level of Consciousness: Awake Insight: Difficulty Acknowledging Presence of Psyciatric Problems - Medication Compliance Cooperative with Inpatient Medication Regimen: No - Group Participation Participates in Group Activities: No Assessment - Assessment Merits Inpatient Hospitalization: For Immediate Safety Inpatient DSM-V Dx: F22 Clinical Impression: 49 year old Male with history of delusional disorder came to the hospital saying he lives at the [facility] and answers questions saying to contact the lead pressman roto gravure printing and was admitted to the BSU at [facility]. Plan - Plan Treatment Plan: Name: LLOYD REDMOND Birthdate: 1970 [id number] Plan #Q15 minute observation. # MMPI patient filled in multiple answer choices- not completed correctly and unable to be evaluated # Presenting delusions, negative symptoms, and paranoia combined with the patients past psychiatric history and decline of functioning are indicative of chronic mental illness such as schizophrenia # The patient requires psychiatric inpatient admission at this time to assure safety, receive treatment and work toward stabilization. # EKG ordered QTc 449 # Collaboration with Instrument Mechanics Supervisor Zaida Russell # Zyprexa 5mg qhs # CT brain w/o contrast shows no abnormal findings # Discussed treatment options including therapy options and patient refused all options of treatment stating " I do not have mental illness" # Provided print outs and information and clinical studies of various treatment options and the patient declined # Discussed patients prior reaction to invega and assured patient that he will not receive treatments that he has had a prior adverse reaction to. # Alternative treatment options that he has had in the past without adverse reactions include zyprexa and patient continues to refuse all treatment options. # TOO paperwork completed awaiting court date # Collateral information obtained by Guille Maza [phone] adoptive brother and Nikki close friend #Goals before discharge include: Engage in treatment and psychiatric stabilization Tentative Discharge: Pending psychiatric stabilization Sodium 137 mmol/L (135-145) 12/14/19 14:12 Potassium 3.5 mmol/L (3.5-5.0) 12/14/19 14:12 BUN 18 mg/dL (6-24) 12/14/19 14:12 Creatinine 1.06 mg/dL (0.67-1.17) 12/14/19 14:12 Hemoglobin A1c 6.1 % (4.0-5.6) H 12/16/19 07:32 Calcium 9.0 mg/dL (8.6-10.3) 12/14/19 14:12 AST 64 U/L (13-39) H 12/14/19 14:12 ALT 41 U/L (7-52) 12/14/19 14:12 Triglycerides 95 mg/dL 12/16/19 07:32 Cholesterol 194 mg/dL 12/16/19 07:32 LDL Cholesterol 126 mg/dL 12/16/19 07:32 Continued Medication Management: Continue Outpt Medication Medications: Current Medications Acetaminophen (Tylenol Tab*) 650 mg PO Q4H PRN PRN Reason: for pain; or Temp >101 F Al Hydrox/Mg Hydrox/Simethicone (Maalox Plus*) 30 ml PO Q4H PRN PRN Reason: INDIGESTION Chlorpromazine HCl (Thorazine Tab*) 100 mg PO Q6H PRN PRN Reason: AGITATION Olanzapine (Zyprexa * Tab Odt) 5 mg PO BEDTIME HSAY Last Admin: 12/25/19 22:10 Dose: Not Given - Discharge Plan Discharge Plan: Inpatient Hospitalization
[2019-12-26] MEDS: OLANzapine TAB*ODT* 5 MG PO SCH (21:28)
--- NOTE | 2019-12-27 14:59 | PN ---
Subjective - Subjective Date of Service: 12/27/19 Service Type: 10862 Hosp care 35 min high complexity Subjective: Nursing Report: Patient was visible on unit, no behavioral incidents. Slept overnight. Patient refusing medications CC: "I have a mistaken identity" Patient was seen and evaluated in the common room. The patient reported that he has a mistaken identity and date or that is 9 years different than his current date of .He reported having adequate appetite and sleep. Patient refusing medications Objective - General Observations Appearance: Disheveled Appears Stated Age: Yes Stature: WNL Posture: WNL Eye Contact: Intense Behavior/Activity: Peculiar - Interaction Observations Attitude Towards Examiner: Uncooperative Stated Mood: Irritable Affect: Restricted Speech Pattern/Tone: Quiet Volume Thought Process: Impoverished Perception: Depersonalization Thought Content: Grandiose Thought Process: Lethality: Paranoid Ideation Hallucination Type: Denies Delusion Type: Persecution, Grandeur - Cognitive Function Orientation: A&O x 4 Level of Consciousness: Awake Insight: Difficulty Acknowledging Presence of Psyciatric Problems Judgment Within Normal Limits: No Ability to Make Reasonable Decisions: Serverely Impaired - Medication Compliance Cooperative with Inpatient Medication Regimen: No - Group Participation Participates in Group Activities: No Assessment - Assessment Merits Inpatient Hospitalization: For Immediate Safety Inpatient DSM-V Dx: F22 Clinical Impression: 49 year old Male with history of delusional disorder came to the hospital saying he lives at the [facility] and answers questions saying to contact the body presser and was admitted to the BSU at [facility]. Plan - Plan Treatment Plan: Name: LLOYD REDMOND Birthdate: 1970 [id number] Plan #Q15 minute observation. # MMPI patient filled in multiple answer choices- not completed correctly and unable to be evaluated # Presenting delusions, negative symptoms, and paranoia combined with the patients past psychiatric history and decline of functioning are indicative of chronic mental illness such as schizophrenia # The patient requires psychiatric inpatient admission at this time to assure safety, receive treatment and work toward stabilization. # EKG ordered QTc 449 # Collaboration with Straw Hat Presser Zaida Russell # Zyprexa 5mg qhs # CT brain w/o contrast shows no abnormal findings # Discussed treatment options including therapy options and patient refused all options of treatment stating " I do not have mental illness" # Provided print outs and information and clinical studies of various treatment options and the patient declined # Discussed patients prior reaction to invega and assured patient that he will not receive treatments that he has had a prior adverse reaction to. # Alternative treatment options that he has had in the past without adverse reactions include zyprexa and patient continues to refuse all treatment options. # TOO court date Thursday 11:15am # Collateral information obtained by Guille Maza [phone] adoptive brother and Nikki (close friend) #Goals before discharge include: Engage in treatment and psychiatric stabilization Tentative Discharge: Pending psychiatric stabilization Sodium 137 mmol/L (135-145) 12/14/19 14:12 Potassium 3.5 mmol/L (3.5-5.0) 12/14/19 14:12 BUN 18 mg/dL (6-24) 12/14/19 14:12 Creatinine 1.06 mg/dL (0.67-1.17) 12/14/19 14:12 Hemoglobin A1c 6.1 % (4.0-5.6) H 12/16/19 07:32 Calcium 9.0 mg/dL (8.6-10.3) 12/14/19 14:12 AST 64 U/L (13-39) H 12/14/19 14:12 ALT 41 U/L (7-52) 12/14/19 14:12 Triglycerides 95 mg/dL 12/16/19 07:32 Cholesterol 194 mg/dL 12/16/19 07:32 LDL Cholesterol 126 mg/dL 12/16/19 07:32 Continued Medication Management: Continue Outpt Medication Medications: Current Medications Acetaminophen (Tylenol Tab*) 650 mg PO Q4H PRN PRN Reason: for pain; or Temp >101 F Al Hydrox/Mg Hydrox/Simethicone (Maalox Plus*) 30 ml PO Q4H PRN PRN Reason: INDIGESTION Chlorpromazine HCl (Thorazine Tab*) 100 mg PO Q6H PRN PRN Reason: AGITATION Olanzapine (Zyprexa * Tab Odt) 5 mg PO BEDTIME SHAY Last Admin: 12/26/19 21:28 Dose: Not Given - Discharge Plan Discharge Plan: Inpatient Hospitalization
[2019-12-27] MEDS: OLANzapine TAB*ODT* 5 MG PO SCH (21:15)
--- NOTE | 2019-12-28 13:13 | PN ---
Subjective - Subjective Date of Service: 12/28/19 Service Type: 11666 Hosp care 35 min high complexity Subjective: Nursing Report: Patient was visible on unit, no behavioral incidents. Slept overnight. Refusing medications. CC: "I do not have a mental illness" Patient was seen and evaluated in the common room. The patient is requesting information on how to diagnosis schizophrenia and that criteria was provided and explained to the patient. Patient is requesting Bio Markers to be done to show a diagnosis. He reported having adequate appetite and sleep. Patient was seen responding to internal stimuli and laughing and talking to himself. Patient asking to see court order for medication over his objection. Objective - General Observations Appearance: Disheveled Appears Stated Age: Yes Stature: Tall Posture: Slumped Eye Contact: Intense Behavior/Activity: Peculiar - Interaction Observations Attitude Towards Examiner: Defensive Stated Mood: Elevated Affect: Restricted Speech Pattern/Tone: Quiet Volume Thought Process: Impoverished, Blocking Perception: WNL Thought Content: Grandiose Thought Process: Lethality: Paranoid Ideation Hallucination Type: Denies Delusion Type: Persecution - Cognitive Function Orientation: A&O x 4 Level of Consciousness: Awake Judgment Within Normal Limits: No - Medication Compliance Cooperative with Inpatient Medication Regimen: No - Group Participation Participates in Group Activities: No Assessment - Assessment Merits Inpatient Hospitalization: For Immediate Safety Inpatient DSM-V Dx: F22 Clinical Impression: 49 year old Male with history of delusional disorder came to the hospital saying he lives at the [facility] and answers questions saying to contact the flexographic press helper and was admitted to the BSU at [facility]. Plan - Plan Treatment Plan: Name: LLOYD REDMOND Birthdate: 1970 [id number] Plan #Q15 minute observation. # Presenting delusions, negative symptoms, and paranoia combined with the patients past psychiatric history and decline of functioning are indicative of chronic mental illness such as schizophrenia # The patient requires psychiatric inpatient admission at this time to assure safety, receive treatment and work toward stabilization. # EKG ordered QTc 449 # Collaboration with Director Of Enterprise Architecture Zaida Russell # To offer patient Abilify 10mg oral and if he refuses give Zyprexa 10mg IM Court ordered during day shift. # CT brain w/o contrast show no abnormal findings findings reviewed with patient #At patients request he was provided with schizophrenia DSM 5 diagnosis criteria and explained how that criteria applies to him # Discussed treatment options including therapy options and patient refused all options of treatment stating " I do not have mental illness" # Provided print outs and information and clinical studies of various treatment options and the patient declined # Discussed patients prior reaction to invega and assured patient that he will not receive treatments that he has had a prior adverse reaction to. Alternative treatment options that he has had in the past without adverse reactions include zyprexa and patient continues to refuse all treatment options. # Treatment over objection ruled in favor of treatment. # Collateral information obtained by Guille Maza [phone] adoptive brother and Nikki (close friend) #Goals before discharge include: Engage in treatment and psychiatric stabilization Tentative Discharge: Pending psychiatric stabilization Sodium 137 mmol/L (135-145) 12/14/19 14:12 Potassium 3.5 mmol/L (3.5-5.0) 12/14/19 14:12 BUN 18 mg/dL (6-24) 12/14/19 14:12 Creatinine 1.06 mg/dL (0.67-1.17) 12/14/19 14:12 Hemoglobin A1c 6.1 % (4.0-5.6) H 12/16/19 07:32 Calcium 9.0 mg/dL (8.6-10.3) 12/14/19 14:12 AST 64 U/L (13-39) H 12/14/19 14:12 ALT 41 U/L (7-52) 12/14/19 14:12 Triglycerides 95 mg/dL 12/16/19 07:32 Cholesterol 194 mg/dL 12/16/19 07:32 LDL Cholesterol 126 mg/dL 12/16/19 07:32 Continued Medication Management: Continue Outpt Medication Medications: Current Medications Acetaminophen (Tylenol Tab*) 650 mg PO Q4H PRN PRN Reason: for pain; or Temp >101 F Al Hydrox/Mg Hydrox/Simethicone (Maalox Plus*) 30 ml PO Q4H PRN PRN Reason: INDIGESTION Chlorpromazine HCl (Thorazine Tab*) 100 mg PO Q6H PRN PRN Reason: AGITATION Olanzapine (Zyprexa * Tab Odt) 5 mg PO BEDTIME SHAY Last Admin: 12/27/19 21:15 Dose: Not Given - Discharge Plan Discharge Plan: Inpatient Hospitalization
[2019-12-28] MEDS ORDERED: ARIPiprazole TAB* 5 MG PO ONE (13:55)
[2019-12-28] MEDS: OLANzapine TAB*ODT* 5 MG PO SCH (20:53)
[2019-12-29] MEDS ORDERED: ARIPiprazole TAB* 5 MG PO ONE (10:02)
--- NOTE | 2019-12-29 10:45 | PN ---
Subjective - Subjective Date of Service: 12/29/19 Service Type: 64318 Hosp care 35 min high complexity Subjective: Nursing Report: Patient was visible on unit, no behavioral incidents. Seen reading in common room. CC: " I need to sleep" Patient was seen and evaluated in the common room. Patient was provided with court paperwork and refuted the truth of the document. The patient received court ordered 10mg zyprexa IM without complication. He did not become combative during administration. The patient was evaluated after receiving medication and expressed " I am doing fine" , he declined vital signs to be taken and did not show signs of adverse effects from medications and denied muscle rigidity, fever , nausea, vomiting. He reported having adequate appetite. Per nursing no behavioral issues or overnight events reported. Objective - General Observations Appearance: Neat Appears Stated Age: Yes Stature: Tall Posture: Rigid Eye Contact: Average Behavior/Activity: Peculiar - Interaction Observations Attitude Towards Examiner: Defensive Stated Mood: Euthymic Affect: Restricted Speech Pattern/Tone: Quiet Volume Thought Process: Disorganized, Loose Associations Perception: Depersonalization Thought Content: Paranoid Thought Process: Lethality: Paranoid Ideation Hallucination Type: Denies Delusion Type: Persecution, Grandeur - Cognitive Function Orientation: A&O x 4 Level of Consciousness: Awake Insight: Difficulty Acknowledging Presence of Psyciatric Problems Judgment Within Normal Limits: No - Medication Compliance Cooperative with Inpatient Medication Regimen: No - Group Participation Participates in Group Activities: No Assessment - Assessment Merits Inpatient Hospitalization: For Immediate Safety Inpatient DSM-V Dx: F22 Clinical Impression: 49 year old Male with history of delusional disorder came to the hospital saying he lives at the [facility] and answers questions saying to contact the toggle press operator and was admitted to the B[facility] at [facility]. Plan - Plan Treatment Plan: Name: LLOYD REDMOND Birthdate: 1970 [id number] Plan #Q15 minute observation. # Presenting delusions, negative symptoms, and paranoia combined with the patients past psychiatric history and decline of functioning are indicative of chronic mental illness such as schizophrenia # The patient requires psychiatric inpatient admission at this time to assure safety, receive treatment and work toward stabilization. # EKG ordered QTc 449 # Collaboration with Papier Mache' Molder Zaida Russell # To offer patient Abilify 10mg oral and if he refuses give Zyprexa 10mg IM [address] ordered during day shift. HBA1c =6.1 Plan to monitor for increased metabolic activity and minimize treatments known to increase metabolic activity. # CT brain w/o contrast show no abnormal findings findings reviewed with patient # At patients request he was provided with schizophrenia DSM 5 diagnosis criteria and explained how that criteria applies to him # Once tolerance is established with abilify will consider long acting injection of Aristada due to having minimal metabolic activity and 2 month dosing intervals # Treatment over objection ruled in favor of treatment. # Collateral information obtained by Guille Maza [phone] adoptive brother and Nikki (close friend) #Goals before discharge include: decrease delusions Tentative Discharge: Pending psychiatric stabilization Sodium 137 mmol/L (135-145) 12/14/19 14:12 Potassium 3.5 mmol/L (3.5-5.0) 12/14/19 14:12 BUN 18 mg/dL (6-24) 12/14/19 14:12 Creatinine 1.06 mg/dL (0.67-1.17) 12/14/19 14:12 Hemoglobin A1c 6.1 % (4.0-5.6) H 12/16/19 07:32 Calcium 9.0 mg/dL (8.6-10.3) 12/14/19 14:12 AST 64 U/L (13-39) H 12/14/19 14:12 ALT 41 U/L (7-52) 12/14/19 14:12 Triglycerides 95 mg/dL 12/16/19 07:32 Cholesterol 194 mg/dL 12/16/19 07:32 LDL Cholesterol 126 mg/dL 12/16/19 07:32 Continued Medication Management: Continue Outpt Medication Medications: Current Medications Acetaminophen (Tylenol Tab*) 650 mg PO Q4H PRN PRN Reason: for pain; or Temp >101 F Al Hydrox/Mg Hydrox/Simethicone (Maalox Plus*) 30 ml PO Q4H PRN PRN Reason: INDIGESTION Chlorpromazine HCl (Thorazine Tab*) 100 mg PO Q6H PRN PRN Reason: AGITATION Olanzapine (Zyprexa * Tab Odt) 10 mg PO DAILY SHAY - Discharge Plan Discharge Plan: Inpatient Hospitalization
[2019-12-30] MEDS ORDERED: OLANzapine TAB*ODT* 10 MG TAB PO SCH (09:00)
[2019-12-30] MEDS ORDERED: ARIPiprazole TAB* 5 MG PO ONE (11:28)
--- NOTE | 2019-12-30 11:54 | PN ---
Subjective - Subjective Date of Service: 12/30/19 Service Type: [id number] Hosp care 35 min high complexity Subjective: Nursing Report: Patient was visible on unit, Slept overnight. Refusing medications CC: "I will not take medications" Patient was seen and evaluated today, he reported being upset about getting medication yesterday against his will and said " I will not take any medications , I do not need them, I know you and Braxton Slagado and the hospital administration are all working together to do this to me." Patient received zyprexa 10mg IM without incident. Objective - General Observations Appearance: Disheveled Appears Stated Age: Yes Stature: Tall Posture: Tense Eye Contact: Intense Behavior/Activity: Accelerated, Peculiar - Interaction Observations Attitude Towards Examiner: Defensive Stated Mood: Angry Affect: Restricted Speech Pattern/Tone: Normal Volume Thought Process: Disorganized Perception: Derealization Thought Content: Paranoid Thought Process: Lethality: Paranoid Ideation Delusion Type: Persecution, Grandeur - Cognitive Function Orientation: A&O x 4 Level of Consciousness: Awake Insight: Difficulty Acknowledging Presence of Psyciatric Problems - Medication Compliance Cooperative with Inpatient Medication Regimen: No - Group Participation Participates in Group Activities: No Assessment - Assessment Merits Inpatient Hospitalization: For Immediate Safety Inpatient DSM-V Dx: F22 Clinical Impression: 49 year old Male with history of delusional disorder came to the hospital saying he lives at the [place] and answers questions saying to contact the press tool maker and was admitted to the BSU at [facility]. Plan - Plan Treatment Plan: Name: LLOYD REDMOND Birthdate: 1970 [id number] Plan #Q15 minute observation. # Presenting delusions, negative symptoms, and paranoia combined with the patients past psychiatric history and decline of functioning are indicative of chronic mental illness such as schizophrenia # The patient requires psychiatric inpatient admission at this time to assure safety, receive treatment and work toward stabilization. # EKG ordered QTc 449 # Collaboration with Facsimile Operator Zaida Russell # To offer patient Abilify 10mg oral and if he refuses give Zyprexa 10mg IM Court ordered during day shift. # HBA1c =6.1 Plan to monitor for increased metabolic activity and minimize treatments that have been known to increase metabolic activity. # CT brain w/o contrast show no abnormal findings findings reviewed with patient # At patients request he was provided with schizophrenia DSM 5 diagnosis criteria and explained how that criteria applies to him # Once tolerance is established with abilify will consider long acting injection of Aristada due to having minimal metabolic activity and 2 month dosing intervals # Treatment over objection ruled in favor of treatment. # Collateral information obtained by Guille Maza [phone] adoptive brother and Nikki (close friend) #Goals before discharge include: decrease paranoia and develop insight into treatment needs Tentative Discharge: Pending psychiatric stabilization Sodium 137 mmol/L (135-145) 12/14/19 14:12 Potassium 3.5 mmol/L (3.5-5.0) 12/14/19 14:12 BUN 18 mg/dL (6-24) 12/14/19 14:12 Creatinine 1.06 mg/dL (0.67-1.17) 12/14/19 14:12 Hemoglobin A1c 6.1 % (4.0-5.6) H 12/16/19 07:32 Calcium 9.0 mg/dL (8.6-10.3) 12/14/19 14:12 AST 64 U/L (13-39) H 12/14/19 14:12 ALT 41 U/L (7-52) 12/14/19 14:12 Triglycerides 95 mg/dL 12/16/19 07:32 Cholesterol 194 mg/dL 12/16/19 07:32 LDL Cholesterol 126 mg/dL 12/16/19 07:32 Continued Medication Management: Continue Outpt Medication Medications: Current Medications Acetaminophen (Tylenol Tab*) 650 mg PO Q4H PRN PRN Reason: for pain; or Temp >101 F Al Hydrox/Mg Hydrox/Simethicone (Maalox Plus*) 30 ml PO Q4H PRN PRN Reason: INDIGESTION Chlorpromazine HCl (Thorazine Tab*) 100 mg PO Q6H PRN PRN Reason: AGITATION Olanzapine (Zyprexa *Odt*) 10 mg PO DAILY SHAY Last Admin: 12/30/19 11:34 Dose: Not Given - Discharge Plan Discharge Plan: Inpatient Hospitalization
[2019-12-31] MEDS ORDERED: ARIPiprazole TAB* 5 MG PO SCH (09:00)
[2019-12-31] MEDS: ARIPiprazole TAB* 5 MG PO SCH (11:18)
[2020-01-01] MEDS: ARIPiprazole TAB* 5 MG PO SCH (11:51)
--- NOTE | 2020-01-01 14:02 | PROCNOTE ---
- Assessment for Patient Restraint Face to Face Encounter Date: 12/31/19 Face to Face Encounter Time: 11:10 Evaluation of the Patient's Immediate Situation: Patient refused court ordered medication and briefly resisted administration of olanzapine. Patient's Reaction to Intervention: Patient placed in brief manual hold with no injuries. Patient's Medication and Behavioral Condition: Patient received IM olanzapine without untoward effects. Evaluate Need for Continued Restraint: Terminate
--- NOTE | 2020-01-01 14:04 | PROCNOTE ---
- Assessment for Patient Restraint Face to Face Encounter Date: 01/01/20 Face to Face Encounter Time: 11:45 Evaluation of the Patient's Immediate Situation: Patient refused court-mandated olanzapine treatment. Patient's Reaction to Intervention: Patient placed in brief manual hold to administer IM medication per battery tester field's order. Patient's Medication and Behavioral Condition: Omari tolerated olanzapine IM without untoward effects and has no injuries from the hold. Evaluate Need for Continued Restraint: Terminate
[2020-01-02] MEDS: ARIPiprazole TAB* 5 MG PO SCH (09:00)
[2020-01-02] MEDS ORDERED: Haloperidol INJ IV/IM* 5 MG/ML AMP IM ONE (10:06)
--- NOTE | 2020-01-02 13:04 | PN ---
Subjective - Subjective Date of Service: 01/02/20 Service Type: [id number] Hosp care 35 min high complexity Subjective: Nursing Report: Patient mostly in his room, received haldol IM today CC: " I know Guille Salgado is in on it" Patient was seen and evaluated today. The patient reported he feels that Guille Salgado is the one that had him brought to the hospital. He plans to go to [facility] once discharged but thinks he has a place at the [facility] hotel. He reported a normal appetite and getting adequate sleep. Objective - General Observations Appearance: Neat Appears Stated Age: Yes Stature: WNL Posture: WNL Eye Contact: Average Behavior/Activity: WNL - Interaction Observations Attitude Towards Examiner: Cooperative Stated Mood: Elevated Affect: Restricted Speech Pattern/Tone: Normal Volume Thought Process: Coherent Perception: Derealization Thought Content: Paranoid, Grandiose Thought Process: Lethality: Paranoid Ideation Hallucination Type: Denies Delusion Type: Grandeur - Cognitive Function Orientation: A&O x 4 Level of Consciousness: Awake Insight: Difficulty Acknowledging Presence of Psyciatric Problems - Medication Compliance Cooperative with Inpatient Medication Regimen: No - Group Participation Participates in Group Activities: No Assessment - Assessment Merits Inpatient Hospitalization: For Immediate Safety Inpatient DSM-V Dx: F22 Clinical Impression: 49 year old Male with history of delusional disorder came to the hospital saying he lives at the [place] and answers questions saying to contact the press set up and was admitted to the B[facility] at [facility]. Plan - Plan Treatment Plan: Name: LLOYD REDMOND Birthdate: 1970 [id number] Plan #Q15 minute observation. # Presenting delusions, negative symptoms, and paranoia combined with the patients past psychiatric history and decline of functioning are indicative of chronic mental illness such as schizophrenia # The patient requires psychiatric inpatient admission at this time to assure safety, receive treatment and work toward stabilization. # EKG ordered QTc 449 # Collaboration with Senior Human Resources Representative Zaida Russell # To offer patient Abilify 10mg oral and if he refuses give Haldol 5mg IM [address] ordered during day shift. # HBA1c =6.1 Plan to monitor for increased metabolic activity and minimize treatments that have been known to increase metabolic activity. # CT brain w/o contrast show no abnormal findings findings reviewed with patient # At patients request he was provided with schizophrenia DSM 5 diagnosis criteria and explained how that criteria applies to him # Treatment over objection ruled in favor of treatment. # Collateral information obtained by Guille Maza [phone] adoptive brother and Nikki (close friend) # Today the patient tolerated Haldol 5mg IM without complications or adverse side effects, will plan to give 100mg Haldol Decanoate long acting injection tomorrow. #Goals before discharge include: Decrease paranoia Tentative Discharge: Tomorrow Sodium 137 mmol/L (135-145) 12/14/19 14:12 Potassium 3.5 mmol/L (3.5-5.0) 12/14/19 14:12 BUN 18 mg/dL (6-24) 12/14/19 14:12 Creatinine 1.06 mg/dL (0.67-1.17) 12/14/19 14:12 Hemoglobin A1c 6.1 % (4.0-5.6) H 12/16/19 07:32 Calcium 9.0 mg/dL (8.6-10.3) 12/14/19 14:12 AST 64 U/L (13-39) H 12/14/19 14:12 ALT 41 U/L (7-52) 12/14/19 14:12 Triglycerides 95 mg/dL 12/16/19 07:32 Cholesterol 194 mg/dL 12/16/19 07:32 LDL Cholesterol 126 mg/dL 12/16/19 07:32 Continued Medication Management: Continue Outpt Medication Medications: Current Medications Acetaminophen (Tylenol Tab*) 650 mg PO Q4H PRN PRN Reason: for pain; or Temp >101 F Al Hydrox/Mg Hydrox/Simethicone (Maalox Plus*) 30 ml PO Q4H PRN PRN Reason: INDIGESTION Aripiprazole (Abilify Tab*) 10 mg PO DAILY SHAY Last Admin: 01/02/20 09:00 Dose: Not Given Chlorpromazine HCl (Thorazine Tab*) 100 mg PO Q6H PRN PRN Reason: AGITATION - Discharge Plan Discharge Plan: Inpatient Hospitalization
[2020-01-03] MEDS ORDERED: Haloperidol Decanoate* 50 MG/ML AMP IM SCH (09:00)
[2020-01-03] MEDS: ARIPiprazole TAB* 5 MG PO SCH (11:48)
--- NOTE | 2020-01-03 15:10 | PN ---
Subjective - Subjective Date of Service: 01/03/20 Service Type: [id number] Hosp care 35 min high complexity Subjective: Nursing Report: Patient was visible on unit, no behavioral incidents. CC: "I am glad to be doing better" Patient was seen and evaluated today. The patient received 100mg haldol D injection and does not report side effects, no muscle rigidity or sweating. He reported having adequate appetite and sleep. He plans to go to [facility] tomorrow following discharge. Objective - General Observations Appearance: Neat Appears Stated Age: Yes Stature: WNL Posture: WNL Eye Contact: Average Behavior/Activity: WNL - Interaction Observations Attitude Towards Examiner: Cooperative Stated Mood: Euthymic Affect: Restricted Speech Pattern/Tone: Clear, Appropriate Thought Process: Coherent Perception: WNL Thought Content: WNL Hallucination Type: None Delusion Type: None - Cognitive Function Orientation: A&O x 4 Level of Consciousness: Awake Cognition: WNL - Medication Compliance Cooperative with Inpatient Medication Regimen: No - Group Participation Participates in Group Activities: No Assessment - Assessment Merits Inpatient Hospitalization: For Immediate Safety Inpatient DSM-V Dx: F22 Clinical Impression: 49 year old Male with history of delusional disorder came to the hospital saying he lives at the [place] and answers questions saying to contact the prepress stripper and was admitted to the B[facility] at [facility]. Plan - Plan Treatment Plan: Name: LLOYD REDMOND Birthdate: 1970 [id number] Plan #Q30 minute observation with computer privileges # Presenting delusions, negative symptoms, and paranoia combined with the patients past psychiatric history and decline of functioning are indicative of chronic mental illness such as schizophrenia # The patient requires psychiatric inpatient admission at this time to assure safety, receive treatment and work toward stabilization. # EKG ordered QTc 449 will reorder after long acting injection # Collaboration with Fur Blowing Machine Attendant Zaida Russell # HBA1c =6.1 Plan to monitor for increased metabolic activity and minimize treatments that have been known to increase metabolic activity. # CT brain w/o contrast show no abnormal findings findings reviewed with patient # At patients request he was provided with schizophrenia DSM 5 diagnosis criteria and explained how that criteria applies to him # Treatment over objection ruled in favor of treatment. # Collateral information obtained by Guille Maza [phone] adoptive brother and Nikki (close friend) # Patient received 100mg Haldol Decanoate long acting injection without complications. #Goals before discharge include: Decrease paranoia Tentative Discharge: Tomorrow Sodium 137 mmol/L (135-145) 12/14/19 14:12 Potassium 3.5 mmol/L (3.5-5.0) 12/14/19 14:12 BUN 18 mg/dL (6-24) 12/14/19 14:12 Creatinine 1.06 mg/dL (0.67-1.17) 12/14/19 14:12 Hemoglobin A1c 6.1 % (4.0-5.6) H 12/16/19 07:32 Calcium 9.0 mg/dL (8.6-10.3) 12/14/19 14:12 AST 64 U/L (13-39) H 12/14/19 14:12 ALT 41 U/L (7-52) 12/14/19 14:12 Triglycerides 95 mg/dL 12/16/19 07:32 Cholesterol 194 mg/dL 12/16/19 07:32 LDL Cholesterol 126 mg/dL 12/16/19 07:32 Continued Medication Management: Continue Outpt Medication Medications: Current Medications Acetaminophen (Tylenol Tab*) 650 mg PO Q4H PRN PRN Reason: for pain; or Temp >101 F Al Hydrox/Mg Hydrox/Simethicone (Maalox Plus*) 30 ml PO Q4H PRN PRN Reason: INDIGESTION Chlorpromazine HCl (Thorazine Tab*) 100 mg PO Q6H PRN PRN Reason: AGITATION Haloperidol Decanoate (Haldol Decanoate*) 100 mg IM Q28D SHAY Last Admin: 01/03/20 11:49 Dose: 100 mg - Discharge Plan Discharge Plan: Inpatient Hospitalization
[2020-01-04 07:55] VITALS: BP 127/85
--- NOTE | 2020-01-04 08:34 | DS ---
Subjective - Subjective Service Types: [address] [facility] Day Mgmt complex over 30 min Discharge Date: 01/04/20 Subjective: CC: "Yes I am better, but I do not think it was from the medication" Patient looks forward to going to [place]. The patient was seen and evaluated before discharge today. The patient reported having adequate appetite and sleep. Per nursing no behavioral issues or overnight events reported. Patient reported tolerating medications without side effects. Justification for admission: Immediate Safety. CC "I live at the [place]" The patient was brought to [facility] by police after refusing to leave hotel property and stating that they need to contact the [place] if they need to know anything. Patient stated that he lives at the [place] for the last 4 years, and is in [facility] through. The patient reported that he has family that lives in [facility], and was visiting them on his way back to [facility]. The patient stated that if anyone wants to know information about him to call the 3rd pressman. He denied access to firearms or stockpiles of medications. Patient defers most questions by saying you have to contact the 3rd pressman of the [place]. He reported adequate sleep and appetite. The patient denied suicidal and or homicidal ideation intent or plan. The patient denied auditory and/ or visual hallucinations. Psychosis Does not endorse hearing things that other people do not hear or seeing things other people do not see. Denied feeling that TV is making references. Denied feeling that people are spying , following , or reading their thoughts. MDD Denied feeling depressed. Denied having diminished interests which were found to be enjoyable in the past. Denied having crying spells , feeling empty inside , feelings of hopelessness , and worthlessness. Denied unintentional weight loss and appetite. Denied interruption of sleep , or feeling tired throughout the day. Denied loss of energy or lack of motivation to complete tasks. Denied overwhelming feelings of guilt or decreased concentration. Denied recurrent thoughts of . Denied thoughts that they would be better off . Anxiety Denied having symptoms of anxiety such as having times where heart feels that it is beating out of chest , sweaty palms, or shallow breathing. Denied having uncomfortable or intrusive thoughts. Denied feeling restless, high strung, or worrying too much most of the time. Bipolar Denied symptoms of maximus such as having many ideas at once. Denied increased talkativeness where no one can interrupt. Denied feeling irritable most of the time while having an persistent abundance of energy most of the day without the use of energy drinks, stimulants, or recreational drug use. Denied an increase in intensity in goal directed activities. Denied having the decreased need to sleep for days , having prolonged elevated mood , or feeling on top of the world. Denied impulsive risky sexual encounters. Denied spending money recklessly , going on spending sprees wiping out savings. Denied impulsively traveling out of town or country, having super briscoe, and unrealistic wealth or fame. Phobias: Patient denied having excessive fear of a particular thing or situation. Eating disorders: Patient denied having excessive eating habits or feelings of guilt after eating. Denied repeated episodes of self induced vomiting after eating. PTSD Denied flashbacks, nightmares and avoidance of a prior traumatic event. PAST PSYCHIATRIC HISTORY: Prior Diagnosis : Delusional Disorder History of past Psychiatric Hospitalizations: Denied prior psychiatric admission. History of past suicide/homicide attempts : Denied past suicide attempts or self injurious behaviors. Outpatient follow-up: None Medications: Past trials of medications include invega with "bad" reaction. Guardianship: None. FAMILY HISTORY: - Suicide: Denied family history of suicide. - Mental illness: Denied a history of mental health in immediate family members. - Substance abuse: Denied substance abuse among family members. SUBSTANCE ABUSE HISTORY: - EtOH: Uses occasionally during social events. No associated legal issues, blackouts, seizures, DTs or past hospitalizations due to alcohol. - Tobacco: Denied - Cannabis: Denied - Heroin: Denied - Cocaine: Denied - Substance abuse treatment: Denied past substance abuse treatment SOCIAL HISTORY: - Denied a history of childhood physical and or sexual abuse Born in [facility] and adopted by a women who lives in [facility] - Education: Masters Degree from [employer] in Epidemiology. No history of special education. - Living situation: unknown - Employment history: [employer] - Relationship: Single and has no children. - service history: Denied PAST MEDICAL HISTORY: Vitaligo that started 3.5 years ago. Denied heart disease, diabetes, cancer and/ or other medical conditions. - Allergies: Invega Physical Exam: Please see ED note Mental Status Exam on Admission APPEARANCE : 49 year old male who appears stated age with multiple white patches on his face from loss of skin pigment . Patient is not malodourous, and appears to have fair hygiene and grooming. BEHAVIOR: Cooperative , calm EYE CONTACT: Fair PSYCHOMOTOR ACTIVITY: No psychomotor agitation or retardation. MOVEMENTS: No abnormal movements observed. SPEECH : Normal rate, rhythm, volume and tone. MOOD : "Fine " AFFECT : Type is elated Range is restricted Mood Incongruent THOUGHT PROCESS: Formulated and organized in a logical, linear goal directed manner. THOUGHT CONTENT: multiple delusions PERCEPTION: No current auditory or visual hallucinations. Doesnt appear to be responding to internal cues. No evidence of depersonalization , de-realization, or illusions SUICIDALITY Denied suicidal ideation, intent or plan. HOMICIDALITY Denied homicidal ideation, intent or plan. Insight/judgment: Poor insight and judgment ORIENTATION: Oriented to self, location, and time. Diagnosis on Admission: Delusional Disorder. Diagnosis on Discharge: Schizophrenia. Condition at the time of discharge: At the time of discharge patient showed improvement of sleep and appetite. The patient was not a danger to self or others. The patient denied suicidal ideation, intent or plan. The patient denied homicidal targets, ideation, intent or plan. This patient participated in psychosocial rehabilitation and gained some insight into problems. The patient gained insight into mental illness, triggers, and treatment. The patient took medication as prescribed. The patient denied side effects of medication and objective signs of side effects were not evident. Therapy Resources were offered to the patient. Patient was given a supply of prescriptions at the time of discharge. The patient plans to attend follow up care with the follow up arrangements that were discussed and put in place. Patient was asked to keep appointments as scheduled, take medication as prescribed, have routine follow up care with their primary care physician and refrain from any use of alcohol or drugs. Objective - General Observations Appearance: Neat Appears Stated Age: Yes Stature: WNL, Tall Posture: WNL Eye Contact: Average Behavior/Activity: WNL - Interaction Observations Attitude Towards Examiner: Cooperative Stated Mood: Euthymic Affect: Restricted Speech Pattern/Tone: Clear, Appropriate Thought Process: Coherent Perception: WNL Thought Content: WNL Hallucination Type: None Delusion Type: Denies - Cognitive Function Orientation: A&O x 4 Level of Consciousness: Awake Cognition: WNL - Medication Compliance Cooperative with Inpatient Medication Regimen: No - Group Participation Participates in Group Activities: No Treatment Course & Assessment Clinical Course & Impression: Hospital course part A: 49 year old Male with history of delusional disorder came to the hospital saying he lives at the [place] and answers questions saying to contact the 3rd pressman and was admitted to the BSU at [facility]. Hospital course part B: Labs ordered included CBC, CMP, UDS, TSH, HBA1c, TSH, Toxicology screen, Urine analysis, and lipid profile. Labs were reviewed and vital signs were monitored during the course of admission. MMPI was ordered and was unable to be processed due to user error and recording multiple answers EKG ordered for risk of QT prolongation and there were no contraindications to antipsychotic treatment. Status post AP treatment QTc 421 The patient was admitted to the adult behavioral unit and placed on 15 minute check for safety. At a later time the patient was on Q30 minute observation and comfort room and computer privileges. With those limits being extended, patient was safe on all checks and there were no occurrence of behavioral incidents. The patient did well on the unit he stayed to himself and read. He had adequate sleep and regular appetite. Tolerated medication changes without side effects. Group therapy and services were offered. The risks, benefits, and alternative treatment options were discussed as well as of the risks of refusing treatment. Treatment associated risks discussed. After this discussion the patient made an acknowledgement of this understanding. Follow up care appointments were put in place. HBA1c, glucose, and lipid panel was ordered and reviewed to monitor metabolic status. Monitoring for metabolic changes was reviewed and it was emphasized to the patient to be continued to be monitored upon discharge. Court Treatment over objection took place and ruled in favor of treatment. Improvements shown from the time of admission include: Improved affect, sleep and decrease in paranoia. The patient expressed readiness for discharge home. The patient presents with a broader range of affect, and the absence of depressed mood, delusions, perceptual disturbance. The patient denied suicidal and or homicidal ideation intent or plan. Overall, the patient responded well to inpatient treatment as evidenced by their report of strengthening of coping mechanisms, reduced distress, and more positive outlook on circumstances. Of note there was an improvement of recognizing how emotional state can effect mood and behavior. Patient showed a great deal of improvement in the degree of his paranoia, although he does not attribute this from the medication that he received. The patient showed some resistance to receiving court ordered anti- psychotic IM treatments however he did not show overt violence or present a danger to himself and or others. He was able to follow re-direction on the unit and was not a behavioral disturbance. The patients delusions were reduced and he was less guarded and noted by his length of conversation and organization of thought process, overall his interpersonal abilities showed improvement with treatment. He began to joke around and smile during conversations and he was no longer was fixated on living in the [place] or directing questions to the [place] 3rd pressman. Before discharge the patient expressed a reasonable and coherent discharge plan. Safety precautions were put in place which included involving the patient and their family to closely monitor for changes in mental state. In addition, implementing follow up care, screening for the need to remove/securing firearms , weapons and stockpile of medications. Patient/ family instructed to immediately call 911 should any safety concerns arise. AIMS was performed and insignificant for involuntary movement disorders. The patient was advised of the 24 hour / 7 days a week availability of the emergency room and to call 911 in the event of an emergency such as being suicidal and/ or homicidal. The patient was informed of the contact information for [facility], Suicide Prevention and Crisis Services, National Suicide Prevention Lifeline, [facility], Alcoholics Anonymous, and [facility]. Medications started included PO Abilify which the patient refused. This was unable to be used because there is no immediate acting IM available so long acting injection was unable to be considered due to no past trials and response. Zyprexa 10mg IM was used in place and was court ordered. Patient received a one time dose of Haldol 5mg PO and tolerated it well without adverse side effects. 100mg Haldol Decanoate long acting IM injection was given on 2019 without complications and will be next due 01/31/2020. The patients adopted family was contacted before discharge. The family was contacted and was able to provide collateral history of the patient. At this time the patient is eager for discharge and is in agreement with the discharge plan and can receive care in the less restrictive outpatient setting. The patient was advised on how the days following discharge can be a vulnerable period and to look out for warning signs associated with decompensation and progression of mental illness. They were notified of the resources available in the event these situations arise and confirmed that the patient has no access to firearms or stockpiles of medications. Patient was not assaultive or a behavioral problem during the course of admission. The patient showed good hygiene and was able to carry out activities of daily living. Patient will be discharged to live at [facility] via [facility]. Follow up appointment at [facility] and PCP Patient informed of follow up appointment times. See more details for follow up care in the discharge plan. Risk factors were mitigated by establishing the patients baseline with close contacts. Implemented precautionary safety measures by confirming no stockpiles of medications and no access to firearms, provided mental health treatment, psychiatric stabilization , provided resources to outpatient services , as well as provided a supportive care environment and therapy resources during the course of hospitalization. Provided Trauma focused therapy. Safety plan was reviewed with the patient and treatment team. The patient verbalized options they would pursue to ensure their safety in the event they feel unsafe and not doing well. Tailored treatment plan to provide the best chance for medication compliance. Risk factors:Male, single, history of a mental health condition, Trauma history. Recent hospitalization. Limited support system. Patient is non - compliant with medication. Protective factors: At discharge patient did not have suicidal ideation, intent or plan. Patient has not made a prior suicide attempt. No history of service. Currently no feelings of hopelessness, not in an occupation of social isolation, doesnt have multiple medical conditions, no family history of suicide, doesnt have access to firearms. Doesnt have command hallucinations and or psychotic features at this time. No current substance abuse. No current alcohol abuse. Not an anniversary of a loss of a loved one. No recent stressful life event. Currently future orientated. Not incarcerated. Not middle or older age. No history of self-injurious behavior, doesnt have cultural belief that supports suicide. Patient does not have a recent loss of someone close that by suicide. Laboratory Tests 12/14/19 12/14/19 12/14/19 04:20 04:20 14:12 WBC 5.6 RBC 4.59 Hgb 13.9 L Hct 41 L MCV 89 MCH 30 MCHC 34 RDW 16 H Plt Count 149 L MPV 10.2 Neut % (Auto) 69.9 Lymph % (Auto) 17.4 [place] % (Auto) 10.5 Eos % (Auto) 1.6 Baso % (Auto) 0.6 Absolute Neuts (auto) 3.9 Absolute Lymphs (auto) 1.0 Absolute Monos (auto) 0.6 Absolute Eos (auto) 0.1 Absolute Basos (auto) 0.0 Absolute Nucleated RBC 0.0 Nucleated RBC % 0.0 Sodium Potassium Chloride Carbon Dioxide Anion Gap BUN Creatinine Est GFR ( Amer) Est GFR (Non-Af Amer) BUN/Creatinine Ratio Glucose Hemoglobin A1c Calcium Total Bilirubin AST ALT Alkaline Phosphatase Total Protein Albumin Globulin Albumin/Globulin Ratio Triglycerides Cholesterol LDL Cholesterol HDL Cholesterol TSH Urine Color Yellow Urine Appearance Clear Urine pH 6.0 Ur Specific [place] 1.023 Urine Protein Negative Urine Ketones 1+ A Urine Blood Negative Urine Nitrate Negative Urine Bilirubin Negative Urine Urobilinogen Negative Ur Leukocyte Esterase Negative Urine Glucose Negative Salicylates Urine Opiates Screen None detected Acetaminophen Ur Barbiturates Screen None detected Ur Phencyclidine Scrn None detected Ur Amphetamines Screen None detected U Benzodiazepines Scrn None detected Urine Cocaine Screen None detected U Cannabinoids Screen None detected Serum Alcohol 12/14/19 12/16/19 12/16/19 14:12 07:32 07:32 WBC RBC Hgb Hct MCV MCH MCHC RDW Plt Count MPV Neut % (Auto) Lymph % (Auto) [place] % (Auto) Eos % (Auto) Baso % (Auto) Absolute Neuts (auto) Absolute Lymphs (auto) Absolute Monos (auto) Absolute Eos (auto) Absolute Basos (auto) Absolute Nucleated RBC Nucleated RBC % Sodium 137 Potassium 3.5 Chloride 105 Carbon Dioxide 19 L Anion Gap 13 H BUN 18 Creatinine 1.06 Est GFR ( Amer) 90.6 Est GFR (Non-Af Amer) 74.9 BUN/Creatinine Ratio 17.0 Glucose 117 H Hemoglobin A1c 6.1 H Calcium 9.0 Total Bilirubin 1.00 AST 64 H ALT 41 Alkaline Phosphatase 74 Total Protein 7.1 Albumin 4.3 Globulin 2.8 Albumin/Globulin Ratio 1.5 Triglycerides 95 Cholesterol 194 LDL Cholesterol 126 HDL Cholesterol 48.7 TSH 0.54 Urine Color Urine Appearance Urine pH Ur Specific [place] Urine Protein Urine Ketones Urine Blood Urine Nitrate Urine Bilirubin Urine Urobilinogen Ur Leukocyte Esterase Urine Glucose Salicylates < 30.00 Urine Opiates Screen Acetaminophen < 15 Ur Barbiturates Screen Ur Phencyclidine Scrn Ur Amphetamines Screen U Benzodiazepines Scrn Urine Cocaine Screen U Cannabinoids Screen Serum Alcohol < 10 Merits Inpatient Hospitalization: No Clear for Discharge: Adequate Clinical Respons Inpatient DSM-V Dx: F22 Discharge Planning - Discharge Planning Discharge Plan: Outpatient Follow Up Outpatient Program: [facility] Recommendations for Continuing Care: Medication Management, Primary Care Followup Medications: Current Medications Acetaminophen (Tylenol Tab*) 650 mg PO Q4H PRN PRN Reason: for pain; or Temp >101 F Al Hydrox/Mg Hydrox/Simethicone (Maalox Plus*) 30 ml PO Q4H PRN PRN Reason: INDIGESTION Chlorpromazine HCl (Thorazine Tab*) 100 mg PO Q6H PRN PRN Reason: AGITATION Haloperidol Decanoate (Haldol Decanoate*) 100 mg IM Q28D [facility] Last Admin: 01/03/20 11:49 Dose: 100 mg Discharge Planning: Prescriptions provided for discharge [] Yes [x] No Follow up care details as per social work arrangements. Patient response to discharge plan: [x] eager for discharge [] agreeable with discharge plan [] ambivalent about discharge [] disagrees with discharge today
== END 2020-01-04 11:05 | disposition home or self-care (01) | DRG 750 ==
LOC: ED 12:52 → BSU 12-15 10:32 → UNDOADMIN 12-15 10:32 → BSU 12-19 17:20
PROVIDERS: ADMIT Psychiatry & Neurology Psychiatry; ATTEND Psychiatry & Neurology Psychiatry
DX: F20.9 Schizophrenia, unspecified (principal); L80 Vitiligo; Z88.8 Allergy status to other drugs, medicaments and biological substances; Z78.1 Physical restraint status; Z79.899 Other long term (current) drug therapy
CPT/HCPCS: 36415; 70470; 80053; 80061; 80307; 80320; 80329; 81003; 83036; 84443; 85025; 93005; 99222; 99232; 99233; 99238; 99284; A9270-GY; G0480; J1200; J1630; J1631; J2060; Q9967

== ENCOUNTER 2020-01-08 12:52 | Emergency (ER) | payer OTHER ==
--- NOTE | 2020-01-08 13:32 | ED ---
Psychiatric Complaint - HPI Summary HPI Summary: Pt. is a 49 y.o male who presents to the ER for complaint of "busy thoughts." Pt. was dc from the [facility] 4 days ago for delusions and psychosis. Pt. states he received an injection while in the hospital and he feels he may be having a side effect. Pt. states he was not rx any medications at discharge. Pt. denies auditory or visual hallucinations. Pt. denies SI or HI. He is currently staying at the homeless assisted. Pt. also notes body aches and nasal congestion. Symptoms are moderate in severity. No current modifying factors. - History Of Current Complaint Chief Complaint: EDPsychosocial Time Seen by Provider: 01/08/20 13:19 Hx Obtained From: Patient - Allergies/Home Medications Allergies/Adverse Reactions: Allergies Allergy/AdvReac Type Severity Reaction Status Date / Time paliperidone [From Invega] Allergy Joint Pain Verified 01/08/20 13:07 PMH/Surg Hx/FS Hx/Imm Hx Previously Healthy: Yes Endocrine/Hematology History: Denies: Hx Diabetes Cardiovascular History: Reports: Hx Angina Denies: Hx Hypertension History: Denies: Hx Renal Disease Sensory History: Denies: Hx Contacts or Glasses, Hx Hearing Aid, Hx Hearing Problem Opthamlomology History: Denies: Hx Contacts or Glasses - Surgical History Surgery Procedure, Year, and Place: none Infectious Disease History: No Infectious Disease History: Denies: Traveled Outside the [place] in Last 30 Days - Family History Known Family History: Positive: Non-Contributory Negative: Cardiac Disease, Diabetes - Social History Occupation: Unemployed 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 Alcohol Use: None Hx Substance Use: No Substance Use Type: Reports: None Hx Tobacco Use: No Smoking Status (MU): Never Smoked Tobacco Review of Systems Constitutional: Negative Eyes: Negative Positive: Nasal Discharge Cardiovascular: Negative Respiratory: Negative Gastrointestinal: Negative Positive: Myalgia Neurological/Mental Status: Negative Positive: Anxious All Other Systems Reviewed And Are Negative: Yes Physical Exam Vital Signs On Initial Exam: Initial Vitals Temp Pulse Resp BP Pulse Ox 97.9 F 79 18 129/79 97 01/08/20 12:55 01/08/20 12:55 01/08/20 12:55 01/08/20 12:55 01/08/20 12:55 Procedures - Sedation Patient Received Moderate/Deep Sedation with Procedure: No Diagnostics - Vital Signs Vital Signs Temp Pulse Resp BP Pulse Ox 01/08/20 12:55 97.9 F 79 18 129/79 97 - Laboratory Result Diagrams: 01/08/20 14:59 01/08/20 14:59 Lab Statement: Any lab studies that have been ordered have been reviewed, and results considered in the medical decision making process. Course/Dx - Course Course Of Treatment: Pt. presenting for MHE. He is cooperative and cleared for annex. Labs unremarkable. + opiates in uds. Denies SI or HI. team discussed case with Dr. Greenfield, psychiatrist, who feels pt. is safe for discharge. Pt. agreeable. Will return to ER if sxs change or worsen. - Differential Dx/Clinical Impression Differential Diagnosis/HQI/PQRI: Positive: Acute Psychosis, Anxiety Provider Diagnosis: Delusional disorder Discharge ED - Sign-Out/Discharge Documenting (check all that apply): Patient Departure Signing out patient TO: Swetha Ojeda - Discharge Plan Condition: Improved Disposition: HOME Referrals: No Primary Care Phys,NOPCP [Medical Doctor] - - Billing Disposition and Condition Condition: IMPROVED Disposition: Home - Attestation Statements Provider Attestation: I was available for consult. This patient was seen by the [facility]. The patient was not presented to, seen by, or examined by me. -[place]
[2020-01-08 14:51] LABS: Urine Appearance Clear; Urine Bilirubin Negative (Negative); Urine Blood Negative (Negative); Urine Color Yellow; Urine Glucose Negative (Negative); Urine Ketones Negative (Negative); Urine Nitrite Negative (Negative); Urine Protein Negative (Negative); Urine Urobilinogen Negative (Negative)
[2020-01-08 15:11] LABS: Hematocrit 44 % (42-52); Hemoglobin 14.5 g/dL (14.0-18.0); Mean Corpuscular HGB Conc 33 g/dL (31-36); Mean Corpuscular Hemoglobin 30 pg (27-31); Mean Corpuscular Volume 90 fL (80-94); Mean Platelet Volume 10.4 fL (7.4-10.4); Platelet Count 176 10^3/uL (150-450); Red Cell Distribution Width 15 % (10-15); White Blood Count 4.5 10^3/uL (3.5-10.8)
[2020-01-08 15:16] LABS: ABS Eosinophils 0.4 10^3/ul (0-0.6); ABS Lymphocytes 1.5 10^3/ul (1.0-4.8); ABS Monocytes 0.5 10^3/ul (0-0.8); Eosinophil % 8.5 %; Lymphocyte % 33.3 %; Nucleated Red Blood Cells % 0.1
[2020-01-08 15:18] LABS: Urine Benzodiazepine Screen None Detected (None Detect); Urine Opiates Screen Presumptive Positive (None Detect)
[2020-01-08 15:26] LABS: Albumin 4.5 g/dL (3.2-5.2); CO2 Carbon Dioxide 25 mmol/L (22-32); Calcium 9.3 mg/dL (8.6-10.3); Chloride 108 mmol/L (101-111); Sodium 139 mmol/L (135-145)
[2020-01-08 15:32] LABS: ALT 34 U/L (7-52); Albumin/Globulin Ratio 1.4 (1-3); Alkaline Phosphatase 86 U/L (34-104); BUN/Creatinine Ratio 14.1 (8-20); Blood Urea Nitrogen 13 mg/dL (6-24); EGFR African American 106.7 (>60); EGFR Non-African American 88.2 (>60); Globulin 3.2 g/dL (2-4); Glucose 84 mg/dL (70-100); Total Protein 7.7 g/dL (6.4-8.9)
[2020-01-08 15:42] LABS: Anion Gap 6 mmol/L (2-11); Potassium 4.1 mmol/L (3.5-5.0)
[2020-01-08 15:46] LABS: Acetaminophen < 15 mcg/mL; Alcohol < 10 mg/dL (<10); Salicylate < 2.50 mg/dL (<30)
[2020-01-08 15:53] LABS: AST 25 U/L (13-39)
[2020-01-08 15:56] LABS: TSH (Thyroid Stimulating Horm) 1.41 mcIU/mL (0.34-5.60)
--- NOTE | 2020-01-08 16:21 | PN ---
Progress Note - Progress Note Date of Service: 01/08/20 Note: This writer producer reviewed case with mental health evaluation staff and met with patient in annex. Patient reports inability to function adequately in setting of fci after receiving first injection of haldol dec less than a week ago prior to discharge from the BSU. Pt requests readmission to BSU based on this need. Pt denies any active safety concerns due to dangerous intent or plan to harm self or others or leonard psychosis. Recommend pt be held in annex overnight and reassessed by the psychiatrist who provided care to him during his recent BSU stay, Dr Shin, who will be in a better position to evaluate patient's current functional status and possible need for admission vs further assistance in the community. Social work staff who arranged disposition following BSU stay may also be able to assist with patient's complaint of inadequate resources in the community to be able to follow up with the aftercare plan at the time of his BSU discharge.
[2020-01-08 18:44] VITALS: BP 120/76
== END 2020-01-08 18:41 | disposition home or self-care (01) ==
LOC: ED 12:52
DX: F22 Delusional disorders (principal); Z88.8 Allergy status to other drugs, medicaments and biological substances; Z59.0 Homelessness
CPT/HCPCS: 36415; 80053; 80307; 80320; 80329; 81003; 84443; 85025; 99285; G0480